=== PATIENT | male | born 1945 | race Hispanic/Latino ===

== ENCOUNTER 2020-01-15 21:42 | Emergency (ER) | payer MEDICARE ==
[2020-01-15 22:47] LABS: Basophils # (Auto) 0.1 K/mm3 (0.0-0.1); Basophils % (Auto) 1.2 % (0.0-1.8); Eosinophils # (Auto) 0.2 K/mm3 (0.0-0.4); Eosinophils % (Auto) 1.8 % (0.0-4.3); Hemoglobin 12.7 gm/dl (11.8-15.2); Lymphocytes # (Auto) 1.9 K/mm3 (1.2-5.4); Lymphocytes % (Auto) 17.2 % (13.4-35.0); Mean Corpuscular HGB Conc 33 % (32-34); Mean Corpuscular Volume 98 fl (84-94); Monocytes # (Auto) 1.5 K/mm3 (0.0-0.8); Monocytes % (Auto) 13.6 % (0.0-7.3); Platelet Count 241 K/mm3 (140-440); Red Blood Count 3.87 M/mm3 (3.65-5.03); Red Cell Distribution Width 13.2 % (13.2-15.2)
[2020-01-15 23:03] LABS: BUN/Creatinine Ratio 35; Blood Urea Nitrogen 21 mg/dL (9-20); Calcium 9.1 mg/dL (8.4-10.2); Hemolysis Index 1
--- NOTE | 2020-01-16 01:38 | Emergency Department Report ---
ED Altered Mental Status HPI - General Chief Complaint: Altered Mental Status Stated Complaint: LOWER BACK PAIN, CONFUSION Time Seen by Provider: 01/16/20 01:34 Source: police Mode of arrival: Wheelchair Limitations: Altered Mental Status - History of Present Illness Initial Comments: Patient is a 74-year-old male that presents emergency room with altered mental status. Patient is confused. Patient was found by EMS wandering around [facility]. Patient was confused with EMS. Patient complained of low back pain to EMS. Patient was recently discharged from [facility]. Patient at this time is alert and oriented x2. Patient denies pain. Patient denies chest pain. Patient states he does not know why he is here. Patient is currently oriented to person and place. Patient is disoriented to situation and time MD Complaint: altered mental status, confusion -: Sudden Associated Symptoms: denies other symptoms - Related Data Allergies Allergy/AdvReac Type Severity Reaction Status Date / Time Penicillins Allergy Anaphylaxis Verified 01/15/20 22:07 ED Review of Systems ROS: Stated complaint: LOWER BACK PAIN, CONFUSION Other details as noted in HPI Constitutional: denies: chills, fever Eyes: denies: eye pain, eye discharge, vision change ENT: denies: ear pain, throat pain Respiratory: denies: cough, shortness of breath, wheezing Cardiovascular: denies: chest pain, palpitations Endocrine: no symptoms reported Gastrointestinal: denies: abdominal pain, nausea, diarrhea Genitourinary: denies: urgency, dysuria Musculoskeletal: denies: back pain, joint swelling, arthralgia Skin: denies: rash, lesions Neurological: denies: headache, weakness, paresthesias Psychiatric: denies: anxiety, depression Hematological/Lymphatic: denies: easy bleeding, easy bruising ED Past Medical Hx - Past Medical History Previous Medical History?: Yes Hx GERD: Yes Hx Psychiatric Treatment: Yes (Major Depression) Additional medical history: PVD, Osteomyelitis , BPH - Surgical History Past Surgical History?: No - Family History Family history: no significant - Social History Smoking Status: Unknown if ever smoked Substance Use Type: None ED Physical Exam - General Limitations: Altered Mental Status General appearance: alert, in no apparent distress - Head Head exam: Present: atraumatic, normocephalic - Eye Eye exam: Present: normal appearance, PERRL Pupils: Present: normal accommodation - ENT ENT exam: Present: mucous membranes moist - Neck Neck exam: Present: normal inspection - Respiratory Respiratory exam: Present: normal lung sounds bilaterally. Absent: respiratory distress - Cardiovascular Cardiovascular Exam: Present: regular rate, normal rhythm. Absent: systolic murmur, diastolic murmur, rubs, gallop - GI/Abdominal GI/Abdominal exam: Present: soft, normal bowel sounds - Rectal Rectal exam: Present: deferred - Extremities Exam Extremities exam: Present: normal inspection - Back Exam Back exam: Present: normal inspection - Neurological Exam Neurological exam: Present: alert, oriented X3 - Psychiatric Psychiatric exam: Present: normal affect, normal mood - Skin Skin exam: Present: warm, dry, intact, normal color. Absent: rash - Assessment Assessment Interval: Baseline - Level of Consciousness 1a. Level of Consciousness: alert/keenly responsive - LOC Questions 1b. LOC Questions: answers 1 question correctly - LOC Command 1c. LOC Commands: performs tasks correctly - Best Gaze 2. Best Gaze: normal - Visual 3. Visual: no visual loss - Facial Palsy 4. Facial Palsy: normal symmetrical movement - Motor Arm 5a. Motor Arm Left: no drift 5b. Motor Arm Right: no drift - Motor Leg 6a. Motor Leg Left: no drift 6b. Motor Leg Right: no drift - Limb Ataxia 7. Limb Ataxia: absent - Sensory 8. Sensory: normal - Best Language 9. Best Language: no aphasia - Dysarthria 10. Dysarthria: normal - Extinction and Inattention 11. Extinction/Inattention: no abnormality - Scoring Total Score: 1 Stroke Severity: Minor Stroke ED Course Vital Signs 01/15/20 01/16/20 01/16/20 22:09 00:58 01:00 Temperature 98.0 F Pulse Rate 84 83 Respiratory 20 12 8 L Rate Blood Pressure 125/78 143/78 Blood Pressure [Left] O2 Sat by Pulse 94 93 96 Oximetry 01/16/20 01/16/20 01/16/20 01:02 01:16 01:30 Temperature Pulse Rate 79 77 72 Respiratory 15 10 L 9 L Rate Blood Pressure 143/78 143/78 Blood Pressure 143/78 [Left] O2 Sat by Pulse 96 96 97 Oximetry 01/16/20 01/16/20 01/16/20 01:46 02:00 02:16 Temperature Pulse Rate 71 70 76 Respiratory 9 L 12 10 L Rate Blood Pressure 143/78 143/78 143/78 Blood Pressure [Left] O2 Sat by Pulse 95 96 95 Oximetry 01/16/20 01/16/20 01/16/20 02:30 02:46 03:00 Temperature Pulse Rate 71 69 72 Respiratory 11 L 11 L 9 L Rate Blood Pressure 138/83 141/77 141/77 Blood Pressure [Left] O2 Sat by Pulse 98 96 97 Oximetry 01/16/20 01/16/20 01/16/20 03:16 03:30 03:45 Temperature Pulse Rate 68 74 76 Respiratory 7 L 12 11 L Rate Blood Pressure 131/75 127/82 131/75 Blood Pressure [Left] O2 Sat by Pulse 95 93 97 Oximetry 01/16/20 01/16/20 01/16/20 04:00 04:15 04:35 Temperature Pulse Rate 70 Respiratory 11 L Rate Blood Pressure 143/78 127/82 127/82 Blood Pressure [Left] O2 Sat by Pulse 94 93 97 Oximetry - Reevaluation(s) Reevaluation #1: Patient placed on an ER hold and a mental health evaluation will be done so the patient and possibly admitted to the geriatric psych floor. I discussed all results and clinical findings with patient. I discussed plan of care with patient. Patient agrees with plan of care. Patient is medically cleared. Patient's final disposition will come from our mental health and psychiatry team. 01/16/20 06:14 \ - Lab Data Result diagrams: 01/15/20 22:29 01/15/20 22:29 Lab Results 01/15/20 01/15/20 01/16/20 Range/Units 22:29 22:29 05:44 WBC 11.3 H (4.5-11.0) K/mm3 RBC 3.87 (3.65-5.03) M/mm3 Hgb 12.7 (11.8-15.2) gm/dl Hct 38.0 (35.5-45.6) % MCV 98 H (84-94) fl MCH 33 H (28-32) pg MCHC 33 (32-34) % RDW 13.2 (13.2-15.2) % Plt Count 241 (140-440) K/mm3 Lymph % (Auto) 17.2 (13.4-35.0) % Montgomery % (Auto) 13.6 H (0.0-7.3) % Eos % (Auto) 1.8 (0.0-4.3) % Baso % (Auto) 1.2 (0.0-1.8) % Lymph # 1.9 (1.2-5.4) K/mm3 Montgomery # 1.5 H (0.0-0.8) K/mm3 Eos # 0.2 (0.0-0.4) K/mm3 Baso # 0.1 (0.0-0.1) K/mm3 Seg Neutrophils % 66.2 (40.0-70.0) % Seg Neutrophils # 7.5 (1.8-7.7) K/mm3 Sodium 134 L (137-145) mmol/L Potassium 4.2 (3.6-5.0) mmol/L Chloride 97.6 L (98-107) mmol/L Carbon Dioxide 26 (22-30) mmol/L Anion Gap 15 mmol/L BUN 21 H (9-20) mg/dL Creatinine 0.6 L (0.8-1.5) mg/dL Estimated GFR > 60 ml/min BUN/Creatinine Ratio 35 % Glucose 148 H (75-100) mg/dL Calcium 9.1 (8.4-10.2) mg/dL Urine Color Yellow (Yellow) Urine Turbidity Clear (Clear) Urine pH 6.0 (5.0-7.0) Ur Specific Coyote 1.012 (1.003-1.030) Urine Protein <15 mg/dl (Negative) mg/dL Urine Glucose (UA) Neg (Negative) mg/dL Urine Ketones Neg (Negative) mg/dL Urine Blood Mod (Negative) Urine Nitrite Neg (Negative) Urine Bilirubin Neg (Negative) Urine Urobilinogen < 2.0 (<2.0) mg/dL Ur Leukocyte Esterase Neg (Negative) Urine WBC (Auto) 2.0 (0.0-6.0) /HPF Urine RBC (Auto) 4.0 (0.0-6.0) /HPF Urine Mucus Few /HPF Urine Opiates Screen Urine Methadone Screen Ur Barbiturates Screen Ur Phencyclidine Scrn Ur Amphetamines Screen U Benzodiazepines Scrn Urine Cocaine Screen U Marijuana (THC) Screen 01/16/20 Range/Units 05:44 WBC (4.5-11.0) K/mm3 RBC (3.65-5.03) M/mm3 Hgb (11.8-15.2) gm/dl Hct (35.5-45.6) % MCV (84-94) fl MCH (28-32) pg MCHC (32-34) % RDW (13.2-15.2) % Plt Count (140-440) K/mm3 Lymph % (Auto) (13.4-35.0) % Montgomery % (Auto) (0.0-7.3) % Eos % (Auto) (0.0-4.3) % Baso % (Auto) (0.0-1.8) % Lymph # (1.2-5.4) K/mm3 Montgomery # (0.0-0.8) K/mm3 Eos # (0.0-0.4) K/mm3 Baso # (0.0-0.1) K/mm3 Seg Neutrophils % (40.0-70.0) % Seg Neutrophils # (1.8-7.7) K/mm3 Sodium (137-145) mmol/L Potassium (3.6-5.0) mmol/L Chloride (98-107) mmol/L Carbon Dioxide (22-30) mmol/L Anion Gap mmol/L BUN (9-20) mg/dL Creatinine (0.8-1.5) mg/dL Estimated GFR ml/min BUN/Creatinine Ratio % Glucose (75-100) mg/dL Calcium (8.4-10.2) mg/dL Urine Color (Yellow) Urine Turbidity (Clear) Urine pH (5.0-7.0) Ur Specific Coyote (1.003-1.030) Urine Protein (Negative) mg/dL Urine Glucose (UA) (Negative) mg/dL Urine Ketones (Negative) mg/dL Urine Blood (Negative) Urine Nitrite (Negative) Urine Bilirubin (Negative) Urine Urobilinogen (<2.0) mg/dL Ur Leukocyte Esterase (Negative) Urine WBC (Auto) (0.0-6.0) /HPF Urine RBC (Auto) (0.0-6.0) /HPF Urine Mucus /HPF Urine Opiates Screen Presumptive negative Urine Methadone Screen Presumptive negative Ur Barbiturates Screen Presumptive negative Ur Phencyclidine Scrn Presumptive negative Ur Amphetamines Screen Presumptive negative U Benzodiazepines Scrn Presumptive negative Urine Cocaine Screen Presumptive negative U Marijuana (THC) Screen Presumptive negative - EKG Data -: EKG Interpreted by Nm EKG shows normal: sinus rhythm, intervals, QRS complexes, ST-T waves Rate: normal - Radiology Data Radiology results: report reviewed CT head/brain wo con INDICATION / CLINICAL INFORMATION: Confusion, Altered Mental Status. TECHNIQUE: Axial CT imaging of the brain was obtained without contrast. Coronal and sagittal reformatted imaging obtained and reviewed. All CT scans at this location are performed using CT dose reduction for ALARA by means of automated exposure control. COMPARISON: None available. FINDINGS: No intracranial hemorrhage, mass, or midline shift. No extra-axial fluid collection. There is area of encephalomalacia within the right inferior posterior parietal lobe consistent with old CVA. There is slight dilatation of the adjacent occipital horn of the lateral ventricle. There are multiple small lacunar infarctions throughout the basal ganglia bilaterally. Prominent bilateral cerebral white matter disease is present consistent with microvascular angiopathy. Moderate deep and cortical cerebral atrophy is noted. Ventricular system and basilar cisterns are otherwise unremarkable. Visualized paranasal sinuses and mastoid air cells are well aerated and clear. No calvarial abnormality noted. IMPRESSION: 1. No definite acute intracranial abnormality. 2. 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 3. 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 It would be difficult to exclude acute small CVA due to the extensive microvascular angiopathy. If clinically indicated, MRI could be performed. - Medical Decision Making Patient is a 74-year-old man who presents to the emergency room for altered mental status. Patient was found wandering around [facility]. Patient was brought in by EMS. Patient has confusion. Patient had a medical evaluation. Patient is medically cleared. Patient had labs which were unremarkable. Patient's urine was negative for UTI. Patient's head CT is negative for acute findings. Patient does not have a medical condition requiring admission. A mental health evaluation was placed in the computer so the patient can be evaluated for admission into our geriatric psych floor. Patient also had an ER hold place. Patient's final disposition will come from our mental health and psychiatry team. - Differential Diagnosis Altered mental status, dementia, psychosis, Zenia psych Critical care attestation.: If time is entered above; I have spent that time in minutes in the direct care of this critically ill patient, excluding procedure time. ED Disposition Clinical Impression: Confusion Altered mental state Qualifiers: Altered mental status type: unspecified Qualified Code(s): R41.82 - Altered mental status, unspecified Disposition: [id number]/[id number] PSY HOSP/PSY UNIT Is pt being admited?: No Does the pt Need Aspirin: No Condition: Stable Referrals: PRIMARY CARE, [Primary Care Provider] - 3-5 Days Time of Disposition: 06:17
--- NOTE | 2020-01-16 05:03 | Cat Scan Report ---
CT head/brain wo con INDICATION / CLINICAL INFORMATION: Confusion, Altered Mental Status. TECHNIQUE: Axial CT imaging of the brain was obtained without contrast. Coronal and sagittal reformatted imaging obtained and reviewed. All CT scans at this location are performed using CT dose reduction for ALAR A by means of automated exposure control. COMPARISON: None available. FINDINGS: No intracranial hemorrhage, mass, or midline shift. No extra-axial fluid collection. There is area of encephalomalacia within the right inferior posterior parietal lobe consistent with o ld CVA. There is slight dilatation of the adjacent occipital horn of the lateral ventricle. There are multiple small lacunar infarctions throughout the basal ganglia bilaterally. Prominent bilateral cer ebral white matter disease is present consistent with microvascular angiopathy. Moderate deep and cor tical cerebral atrophy is noted. Ventricular system and basilar cisterns are otherwise unremarkable. Visualized paranasal sinuses and mastoid air cells are well aerated and clear. No calvarial abnormali ty noted. IMPRESSION: 1. No definite acute intracranial abnormality. 2. 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 3. 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 It would be diffic ult to exclude acute small CVA due to the extensive microvascular angiopathy. If clinically indicated , MRI could be performed. Signer Name: Elizabeth Sharif MD Signed: 01/16/2020 4:58 AM Workstation Name: [id number]
[2020-01-16 06:00] LABS: Bilirubin,Urine NEG (Negative); Blood,Urine MOD (Negative); Color,Urine Yellow (Yellow); Mucus,Urine FEW /HPF; Protein,Urine <15 mg/dL mg/dL (Negative); Urobilinogen,Urine < 2.0 mg/dL (<2.0)
[2020-01-16 06:07] LABS: Amphetamine Screen,Urine PRESUMPTIVE NEGATIVE; Benzodiazepines Screen,Urine PRESUMPTIVE NEGATIVE; Cannabinoid Screen,Urine PRESUMPTIVE NEGATIVE; Cocaine Screen,Urine PRESUMPTIVE NEGATIVE; Methadone Screen,Urine PRESUMPTIVE NEGATIVE; Opiate Screen,Urine PRESUMPTIVE NEGATIVE
[2020-01-16 15:21] VITALS: BP 139/83
== END 2020-01-16 18:59 ==
LOC: ED 21:42
DX: R41.82 Altered mental status, unspecified (principal); M54.5 Low back pain; R41.0 Disorientation, unspecified; K21.9 Gastro-esophageal reflux disease without esophagitis; F32.89 Other specified depressive episodes; Z88.0 Allergy status to penicillin
CPT/HCPCS: 36415; 70450; 80048; 80307; 81001; 82962; 85025; 93005

== ENCOUNTER 2020-02-08 17:33 | Emergency (ER) | payer MEDICARE ==
[2020-02-08 18:13] LABS: Basophils # (Auto) 0.2 K/mm3 (0.0-0.1); Basophils % (Auto) 1.2 % (0.0-1.8); Eosinophils # (Auto) 0.2 K/mm3 (0.0-0.4); Eosinophils % (Auto) 1.5 % (0.0-4.3); Hematocrit 42.1 % (35.5-45.6); Hemoglobin 13.9 gm/dl (11.8-15.2); Lymphocytes # (Auto) 2.4 K/mm3 (1.2-5.4); Lymphocytes % (Auto) 18.8 % (13.4-35.0); Mean Corpuscular HGB Conc 33 % (32-34); Mean Corpuscular Volume 96 fl (84-94); Monocytes # (Auto) 1.4 K/mm3 (0.0-0.8); Monocytes % (Auto) 10.9 % (0.0-7.3); Platelet Count 234 K/mm3 (140-440); Red Blood Count 4.38 M/mm3 (3.65-5.03); Red Cell Distribution Width 13.5 % (13.2-15.2)
[2020-02-08 18:32] LABS: BUN/Creatinine Ratio 17; Blood Urea Nitrogen 10 mg/dL (9-20); Calcium 8.9 mg/dL (8.4-10.2); Hemolysis Index 6
[2020-02-08] MEDS ORDERED: POTASSIUM CHLORIDE ER 20 MEQ TAB PO ONE (21:36)
--- NOTE | 2020-02-08 21:40 | Emergency Department Report ---
ED Psych HPI - General Chief Complaint: Psych Stated Complaint: MH Time Seen by Provider: 02/08/20 21:29 Source: patient Mode of arrival: Wheelchair - History of Present Illness Initial Comments: Patient is 74 years old male with history of hypertension and depression. Patient presented to the ER stating that he is feeling very depressed and he is thinking about killing himself. Patient stated that he is living situation is very bad. He stated that he has nothing to live for now. He stated that his plan is to pickle pumper a fight with someone with a gun like a liaison officer so he can get shot. Patient denied any homicidal ideation. Patient also denied any visual or auditory hallucination. MD Complaint: suicidal ideation, feels depressed - Related Data Home Medications Medication Instructions Recorded Confirmed Last Taken No Known Home Medications [No 02/08/20 02/08/20 Unknown Reported Home Medications] Allergies Allergy/AdvReac Type Severity Reaction Status Date / Time Penicillins Allergy Anaphylaxis Verified 02/08/20 17:39 ED Review of Systems ROS: Stated complaint: MH Other details as noted in HPI Comment: All other systems reviewed and negative Constitutional: denies: chills, fever Respiratory: denies: cough, shortness of breath, SOB with exertion, wheezing Cardiovascular: denies: chest pain, palpitations Gastrointestinal: denies: abdominal pain, nausea, vomiting Musculoskeletal: denies: back pain Neurological: denies: headache, weakness, numbness, paresthesias, confusion, abnormal gait Psychiatric: depression, suicidal thoughts. denies: auditory hallucinations, visual hallucinations, homicidal thoughts ED Past Medical Hx - Past Medical History Hx GERD: Yes Hx Psychiatric Treatment: Yes (Major Depression) Additional medical history: PVD, Osteomyelitis , BPH - Surgical History Additional Surgical History: Lumbar fusion, left foot half amputation, spinal tumor removal - Social History Smoking Status: Never Smoker Substance Use Type: None - Medications Home Medications: Home Medications Medication Instructions Recorded Confirmed Last Taken Type No Known Home Medications [No 02/08/20 02/08/20 Unknown History Reported Home Medications] ED Physical Exam - General Limitations: No Limitations, Physical Limitation General appearance: alert, in no apparent distress - Head Head exam: Present: atraumatic, normocephalic, normal inspection - Eye Eye exam: Present: normal appearance - ENT ENT exam: Present: normal exam, normal orophraynx, mucous membranes moist - Neck Neck exam: Present: normal inspection - Respiratory Respiratory exam: Present: normal lung sounds bilaterally - Cardiovascular Cardiovascular Exam: Present: regular rate, normal rhythm, normal heart sounds - GI/Abdominal GI/Abdominal exam: Present: soft, normal bowel sounds. Absent: distended, tenderness, guarding, rebound, rigid, organomegaly, mass, bruit, pulsatile mass, hernia - Extremities Exam Extremities exam: Present: normal inspection, full ROM, normal capillary refill. Absent: tenderness, pedal edema, calf tenderness - Back Exam Back exam: Present: normal inspection, full ROM. Absent: CVA tenderness (R), CVA tenderness (L) - Neurological Exam Neurological exam: Present: alert, oriented X3, CN II-XII intact. Absent: motor sensory deficit - Psychiatric Psychiatric exam: Present: depressed, suicidal ideation. Absent: agitated, anxious, flat affect, manic, homicidal ideation - Skin Skin exam: Present: warm, intact, normal color ED Course Vital Signs 02/08/20 02/09/20 02/09/20 17:42 00:32 01:58 Temperature 98.0 F 97.9 F Pulse Rate 76 65 Respiratory 18 18 18 Rate Blood Pressure 145/72 Blood Pressure 101/56 [Left] O2 Sat by Pulse 98 96 Oximetry 02/09/20 02/09/20 08:00 17:03 Temperature 98.4 F 98.6 F Pulse Rate 74 67 Respiratory 19 18 Rate Blood Pressure Blood Pressure 155/94 144/50 [Left] O2 Sat by Pulse 96 96 Oximetry ED Medical Decision Making - Lab Data Result diagrams: 02/08/20 17:47 02/09/20 12:20 Critical care attestation.: If time is entered above; I have spent that time in minutes in the direct care of this critically ill patient, excluding procedure time. ED Disposition Clinical Impression: Suicidal ideation Disposition: DC/[id number] PSY HOSP/PSY UNIT Is pt being admited?: No Condition: Stable Instructions: Suicide Prevention for Adults (ED)
[2020-02-09 04:40] LABS: Bilirubin,Urine NEG (Negative); Blood,Urine SM (Negative); Color,Urine Yellow (Yellow); Protein,Urine <15 mg/dL mg/dL (Negative)
[2020-02-09 04:41] LABS: Amphetamine Screen,Urine PRESUMPTIVE NEGATIVE; Benzodiazepines Screen,Urine PRESUMPTIVE NEGATIVE; Cannabinoid Screen,Urine PRESUMPTIVE NEGATIVE; Cocaine Screen,Urine PRESUMPTIVE NEGATIVE; Methadone Screen,Urine PRESUMPTIVE NEGATIVE; Opiate Screen,Urine PRESUMPTIVE NEGATIVE
[2020-02-09] MEDS ORDERED: ACETAMINOPHEN 325 MG TAB ONE (15:27)
[2020-02-09] MEDS ORDERED: ACETAMINOPHEN 325 MG TAB PO ONE (15:28)
[2020-02-09 17:05] VITALS: BP 144/50
== END 2020-02-09 18:54 ==
LOC: ED 17:33
DX: R45.851 Suicidal ideations (principal); F32.9 Major depressive disorder, single episode, unspecified; I10 Essential (primary) hypertension; K21.9 Gastro-esophageal reflux disease without esophagitis; Z79.899 Other long term (current) drug therapy; Z98.890 Other specified postprocedural states; Z88.0 Allergy status to penicillin
CPT/HCPCS: 36415; 80048; 80307; 80320; 81001; 84132; 85025; G0480

== ENCOUNTER 2020-02-09 11:12 | Inpatient (IN) | payer MEDICARE ==
[2020-02-09] MEDS ORDERED: ZOLPIDEM 5 MG TAB PO PRN (22:35)
[2020-02-09] MEDS: traZODone 50 MG TAB PO SCH (23:21)
[2020-02-09] MEDS: QUEtiapine 100 MG TAB PO SCH (23:22)
[2020-02-09] MEDS: ACETAMINOPHEN 325 MG TAB PO PRN (23:23)
[2020-02-10] MEDS: QUEtiapine 100 MG TAB PO SCH ×3 (03:00→21:11)
[2020-02-10] MEDS: traZODone 50 MG TAB PO SCH ×2 (03:01→21:11)
--- NOTE | 2020-02-10 06:52 | History and Physical Report ---
GP History & Physical - History of Present Illness Date of admission: 02/09/20 Date of Examination: 02/10/20 Reason for Admission: Danger to self Chief Complaint: Suicidal Ideation History of Present Illness: Per ED Provider: Patient is 74 years old male with history of hypertension and depression. Patient presented to the ER stating that he is feeling very depressed and he is thinking about killing himself. Patient stated that he is living situation is very bad. He stated that he has nothing to live for now. 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 Patient denied any homicidal ideation. Patient also denied any visual or auditory hallucination. HPI Patient is a disabled 74-year-old male with past psychiatric history of depression and past medical history of hypertension, chronic low back pain and BPH who presented to the ER for evaluation of suicidal ideation. Patient stated coming to the ER because he thinks was about to commit suicide and his suicidal thoughts have been precipitated mostly due to his living situation and because he is not satisfied with life. Patient reported being bullied both physically and verbally by 1 of his other 2 roommates, states this particular roommate may decrease him a lot and states a lot of negative things about him and always criticizing everything he does at home. Patient reported he has been very depressed because of this, has been having poor sleep patterns suicidal ideation but denies any auditory visual hallucination or any homicidal thoughts. Patient endorses to prescription drug abuse and addiction thoughts post back surgery denies any other illicit drug use. Patient reported he is alone and has no family support whatsoever, Patient had initially told nurse he his on suboxone therapy and his last one was 10 days ago, review of medical records showed last suboxone rx was back in September. PAST PSYCHIATRIC HISTORY: Diagnoses: Depression Suicide attempts or Self-harm behavior: None reported Prior psychiatric hospitalizations: None reported Substance Abuse history: Yes, rx medications Previous psychiatric medications tried: None reported Outpatient treatment: None reported PAST MEDICAL HISTORY: Chronic Back pain and BPH Family Psychiatric History: None reported or documented SOCIAL HISTORY Marital Status: Living Arrangements: WIth roommates Employment Status: Disabled Access to guns/weapons: None reported Education: 12th grade History of Abuse: None reported Legal History: None reported REVIEW OF SYSTEMS Constitutional: Negative for weight loss ENT: Negative for stridor Respiratory: Negative for cough or hemoptysis All other systems reviewed and are negative MENTAL STATUS EXAMINATION General Appearance and Behavior: Age appropriate, fair hygiene, wearing appropriate clothes, good/poor eye contact, cooperative with questioning and polite Cooperation: Participating/engaged Psychomotor Behavior: unremarkable and within normal limits Mood: Depressed Affect and affective range: congruent with mood Thought Process: Fluent/Logical Thought Content: Within reality Speech: Normal volume, Regular rate and rhythm Intellectual Functioning: Average Suicidal Ideation: Endorses Homicidal Ideation: Denies HI Impulse Control: Unimpaired Insight and Judgment: Normal insight and judgment Memory: Normal Attention: Normal Orientation: Alert, oriented Assessment and Plan - Psychiatric problem (1) MDD (major depressive disorder), recurrent severe, without psychosis Current Visit: Yes Status: Acute (2) Substance use disorder Current Visit: Yes Status: Acute Treatment Plan: Patient started on Seroquel, Venlafaxine and nicotine pacth PRN. Home meds restarted. Patient will be admitted for inpatient psychiatric evaluation, medication adjustment and close monitoring The patient's behavior, mood, sleep and appetite will be closely monitored. Patient will be enrolled in individual and group therapeutic sessions and encouraged to attend. Patient will be provided with a safe and structured environment. Patient's physical health needs will be addressed by the Hospitalist. [facility] Consult[facility] Labs including CBC, CMP, Lipid profile and Hemoglobin A1C ordered Social Assessment will be completed and the Converter Operator will work with patient and family to ensure a suitable and safe disposition Medication adjustment will be made as clinically indicated Usual Wellness Yazdanism/Preservation: - Start Trazodone 50 mg po QHS & 50 mg po QHS PRN between 10 PM & 2 AM for insomnia - Start Melatonin 5 mg po QHS to promote circadian rhythm - Start Wallis-3 for brain health, reduce impulsivity, and as adjunctive treatment for mood disorder, continue upon discharge given overall benefits. - Start B1 prophylaxis with 200 mg po for 5 days The patient agreed on the treatment plan, understood the risk, benefit, alternative treatment, potential consequence of no treatment, and gave informed consent. This is an acknowledgement statement that EMMY ROBERTS is a 74 year old M who requires inpatient psychiatric admission for treatment which could reasonably be expected to improve the patient's condition for Estimated period of time patient will need to remain in the hospital: [ 7] Plan for post-hospital care: [ outpatient] Legal Status: Voluntary Patient Problems: Current Active Problems MDD (major depressive disorder), recurrent severe, without psychosis (Acute) Substance use disorder (Acute) Reaction to Hospitalization: Accepting Medications and Allergies Allergies Allergy/AdvReac Type Severity Reaction Status Date / Time Penicillins Allergy Anaphylaxis Verified 02/08/20 17:39 Home Medications Medication Instructions Recorded Confirmed Last Taken Type No Known Home Medications [No 02/08/20 02/09/20 Unknown History Reported Home Medications] Active Meds: Active Medications Acetaminophen (Tylenol) 975 mg PO Q6H PRN PRN Reason: Pain, Mild (1-3) Finasteride (Proscar) 5 mg PO QDAY [facility] Quetiapine Fumarate (Seroquel) 50 mg PO BID [facility] Last Admin: 02/10/20 03:00 Dose: Not Given Documented by: Tamsulosin HCl (Flomax) 0.4 mg PO QDAY [facility] Trazodone HCl (Desyrel) 50 mg PO QHS [facility] Last Admin: 02/10/20 03:01 Dose: Not Given Documented by: Venlafaxine HCl (Effexor Xr) 75 mg PO QDAY [facility] Zolpidem Tartrate (Ambien) 5 mg PO QHS PRN PRN Reason: Sleep Results - Results Labs/Vitals: Last Vital Signs Temp 99.2 F 02/09/20 22:00 Pulse 88 02/09/20 22:00 Resp 18 02/09/20 22:00 BP 133/41 02/09/20 22:00 Pulse Ox 97 02/09/20 22:00 Physical Examination - Constitutional Vitals: Vital Signs Temp Pulse Resp BP Pulse Ox 99.2 F 88 18 133/41 97 02/09/20 22:00 02/09/20 22:00 02/09/20 22:00 02/09/20 22:00 02/09/20 22:00 Temperature -Last 24 Hours Temperature 99.2 F Mental Status Exam - Vital signs Last Vital Signs Temp 99.2 F 02/09/20 22:00 Pulse 88 02/09/20 22:00 Resp 18 02/09/20 22:00 BP 133/41 02/09/20 22:00 Pulse Ox 97 02/09/20 22:00 Assessment and Plan - Psychiatric problem (1) MDD (major depressive disorder), recurrent severe, without psychosis Current Visit: Yes Status: Acute (2) Substance use disorder Current Visit: Yes Status: Acute Physician Certification - Certification Statement Physician Certification Statement: This is an acknowledgement statement that EMMY ROBERTS is a 74 year old M who requires inpatient psychiatric admission for treatment which could reasonably be expected to improve the patient's condition for Estimated period of time patient will need to remain in the hospital: [ ] Plan for post-hospital care: [ ]
[2020-02-10 07:57] LABS: Basophils # (Auto) 0.2 K/mm3 (0.0-0.1); Basophils % (Auto) 1.3 % (0.0-1.8); Eosinophils # (Auto) 0.2 K/mm3 (0.0-0.4); Eosinophils % (Auto) 2.1 % (0.0-4.3); Hematocrit 42.4 % (35.5-45.6); Hemoglobin 14.1 gm/dl (11.8-15.2); Lymphocytes # (Auto) 2.2 K/mm3 (1.2-5.4); Lymphocytes % (Auto) 18.1 % (13.4-35.0); Mean Corpuscular HGB Conc 33 % (32-34); Mean Corpuscular Volume 98 fl (84-94); Monocytes # (Auto) 1.5 K/mm3 (0.0-0.8); Monocytes % (Auto) 12.6 % (0.0-7.3); Platelet Count 240 K/mm3 (140-440); Red Blood Count 4.33 M/mm3 (3.65-5.03); Red Cell Distribution Width 13.8 % (13.2-15.2)
[2020-02-10 08:12] LABS: Alanine Aminotransferase 91 units/L (7-56); Albumin 3.9 g/dL (3.9-5); BUN/Creatinine Ratio 16; Blood Urea Nitrogen 11 mg/dL (9-20); Calcium 9.1 mg/dL (8.4-10.2); Chol/HDL Ratio 2.86 %; HDL Cholesterol 50 mg/dL (40-59); Hemolysis Index 17; LDL Cholesterol,Direct 95 mg/dL (50-130)
[2020-02-10] MEDS ORDERED: TAMSULOSIN 0.4 MG CAP PO SCH (10:00)
[2020-02-10] MEDS ORDERED: QUEtiapine 100 MG TAB PO SCH (10:00)
[2020-02-10] MEDS: FINASTERIDE 5 MG TAB PO SCH (12:13)
[2020-02-10] MEDS: VENLAFAXINE XR 75 MG CAP PO SCH (12:14)
[2020-02-10] MEDS: NICOTINE 7 MG/24 HR PATCH TD SCH (17:09)
--- NOTE | 2020-02-10 17:51 | Consultation ---
History of Present Illness - Reason for Consult Consult date: 02/10/20 HTN Requesting physician: STEPHEN BEAN - History of Present Illness 74 YO Male with HTN, Depression, GERD, PVD, BPH, chronic back pain admitted to [facility] for psychiatric stabilization. Patient seen and evaluated in his room. Patient relates reclining in bed. Patient denies any a.m. complaints. Patient reports that he does not take medication for high blood pressure as an outpatient. Patient denies fever, chills, chest pain, palpitation, shortness of breath, productive cough, recent ill contacts, or known exposure to COVID-19. Patient knowledges feeling depressed. No reported nursing events. Past History Past Medical History: other (See HPI) Past Surgical History: Other (Back surgery) Social history: single Family history: hypertension Medications and Allergies Allergies Allergy/AdvReac Type Severity Reaction Status Date / Time Penicillins Allergy Anaphylaxis Verified 02/08/20 17:39 Home Medications Medication Instructions Recorded Confirmed Last Taken Type No Known Home Medications [No 02/08/20 02/09/20 Unknown History Reported Home Medications] Active Meds: Active Medications Acetaminophen (Tylenol) 975 mg PO Q6H PRN PRN Reason: Pain, Mild (1-3) Finasteride (Proscar) 5 mg PO QDAY [facility] Last Admin: 02/10/20 12:13 Dose: 5 mg Documented by: Nicotine (Habitrol) 7 mg TD QDAY [facility] Last Admin: 02/10/20 17:09 Dose: 7 mg Documented by: Quetiapine Fumarate (Seroquel) 50 mg PO BID [facility] Last Admin: 02/10/20 12:13 Dose: 50 mg Documented by: Tamsulosin HCl (Flomax) 0.4 mg PO QDAY [facility] Last Admin: 02/10/20 12:14 Dose: 0.4 mg Documented by: Trazodone HCl (Desyrel) 50 mg PO QHS [facility] Last Admin: 02/10/20 03:01 Dose: Not Given Documented by: Venlafaxine HCl (Effexor Xr) 75 mg PO QDAY [facility] Last Admin: 02/10/20 12:14 Dose: 75 mg Documented by: Zolpidem Tartrate (Ambien) 5 mg PO QHS PRN PRN Reason: Sleep Review of Systems Constitutional: no weight loss, no weight gain, no fever, no chills Ears, nose, mouth and throat: no ear pain, no ear discharge, no tinnitis, no decreased hearing Cardiovascular: no chest pain, no orthopnea, no palpitations, no rapid/irregular heart beat Respiratory: no cough, no cough with sputum, no excessive sputum, no hemoptysis Gastrointestinal: no nausea, no vomiting, no diarrhea, no constipation Genitourinary Male: no hematuria, no flank pain, no discharge, no urinary hesitancy Rectal: no pain, no incontinence, no bleeding Musculoskeletal: no neck stiffness, no neck pain, no shooting arm pain, no arm numbness/tingling, no low back pain Integumentary: no rash, no pruritis, no redness, no sores, no wounds Neurological: no paralysis, no weakness, no parathesias, no numbness, no tingling Psychiatric: no anxiety, no memory loss, no change in sleep habits, no sleep disturbances, no insomnia, no hypersomnia, no change in appetite Endocrine: no cold intolerance, no heat intolerance, no polyphagia, no excessive thirst, no polyuria, no nocturia Hematologic/Lymphatic: no easy bruising, no easy bleeding, no lymphadenopathy, no lymphedema Allergic/Immunologic: no urticaria, no allergic rhinitis, no wheezing, no persistent infections, no anaphylaxis Exam - Constitutional Vitals: Temp Pulse Resp BP Pulse Ox 99.2 F 88 18 133/41 97 02/09/20 22:00 02/09/20 22:00 02/09/20 22:00 02/09/20 22:00 02/09/20 22:00 General appearance: Present: no acute distress, well-nourished - EENT Eyes: Present: PERRL ENT: hearing intact, clear oral mucosa - Neck Neck: Present: supple, normal ROM - Respiratory Respiratory effort: normal Respiratory: bilateral: CTA - Cardiovascular Heart Sounds: Present: S1 & S2. Absent: rub, click - Extremities Extremities: pulses symmetrical, No edema Peripheral Pulses: within normal limits - Abdominal General gastrointestinal: Present: soft, non-tender, non-distended, normal bowel sounds Male genitourinary: Present: normal - Integumentary Integumentary: Present: clear, warm, dry - Musculoskeletal Musculoskeletal: gait normal, strength equal bilaterally - Psychiatric Psychiatric: appropriate mood/affect, intact judgment & insight - Neurologic Neurologic: CNII-XII intact, moves all extremities Results - Labs CBC & Chem 7: 02/10/20 07:05 02/10/20 07:05 Labs: Abnormal lab results 02/10/20 02/10/20 Range/Units 07:05 07:05 WBC 12.0 H (4.5-11.0) K/mm3 MCV 98 H (84-94) fl MCH 33 H (28-32) pg Daniels % (Auto) 12.6 H (0.0-7.3) % Daniels # 1.5 H (0.0-0.8) K/mm3 Baso # 0.2 H (0.0-0.1) K/mm3 Seg Neutrophils # 7.9 H (1.8-7.7) K/mm3 Creatinine 0.7 L (0.8-1.5) mg/dL Glucose 136 H (75-100) mg/dL AST 53 H (5-40) units/L ALT 91 H (7-56) units/L Assessment and Plan - Patient Problems (1) Hypertension Current Visit: No Status: Acute Qualifiers: Hypertension type: essential hypertension Qualified Code(s): I10 - Essential (primary) hypertension Plan to address problem: Blood pressure is within normal limits at time of my evaluation and during coarse of admission. Monitor BP q shift, IV hydralazine PRN for SBP greater than or equal to 160.
[2020-02-10] MEDS ORDERED: hydrALAZINE 20 MG/1 ML INJ IV PRN (18:42)
[2020-02-10] MEDS ORDERED: traZODone 50 MG TAB PO SCH (22:00)
--- NOTE | 2020-02-11 06:52 | Progress Note ---
Subjective Date of service: 02/11/20 Principal diagnosis: MDD (major depressive disorder), recurrent severe, without psychosis Subjective Comment: Nurse note: Received in the activity room sitting on w/c calmly. A&OX3. Denies pain. Said "no" to SI and HI. No behavioral issue or acute distress observed. Will continue to monitor. Psych Progress Patient seen in social room today on wheel chair, describes mood as depressed says mostly due to his medical conditions and requesting and triple his depression medication. Patient reports being suicidal and expresses concern about peeing on himself. Patient denies AVH and endorses good sleep and appetite. Reason for continuing inpatient psychiatric hospitalization: Persistent depressed mood accompanied by Suicidal ideation MENTAL STATUS EXAMINATION General Appearance and Behavior: Age appropriate, fair hygiene, wearing appropriate clothes, good/poor eye contact, cooperative with questioning and polite Cooperation: Participating/engaged Psychomotor Behavior: unremarkable and within normal limits Mood: Depressed Affect and affective range: congruent with mood Thought Process: Fluent/Logical Thought Content: Within reality Speech: Normal volume, Regular rate and rhythm Intellectual Functioning: Average Suicidal Ideation: Endorses Homicidal Ideation: Denies HI Impulse Control: Unimpaired Insight and Judgment: Normal insight and judgment Memory: Normal Attention: Normal Orientation: Alert, oriented Assessment and Plan - Psychiatric problem (1) MDD (major depressive disorder), recurrent severe, without psychosis Current Visit: Yes Status: Acute (2) Substance use disorder Current Visit: Yes Status: Acute Treatment Plan: Patient started on Seroquel, Venlafaxine and nicotine pacth PRN. Home meds restarted. Patient will be admitted for inpatient psychiatric evaluation, medication adjustment and close monitoring The patient's behavior, mood, sleep and appetite will be closely monitored. Patient will be enrolled in individual and group therapeutic sessions and encouraged to attend. Patient will be provided with a safe and structured environment. Patient's physical health needs will be addressed by the Hospitalist. Hospitalist Consulted Labs including CBC, CMP, Lipid profile and Hemoglobin A1C ordered Social Assessment will be completed and the Automotive Engineering Technician will work with patient and family to ensure a suitable and safe disposition Medication adjustment : will discontinue flomax and finesteride due to incontinence. Usual Wellness Adventist/Preservation: - Start Trazodone 50 mg po QHS & 50 mg po QHS PRN between 10 PM & 2 AM for insomnia - Start Melatonin 5 mg po QHS to promote circadian rhythm - Start Gaines-3 for brain health, reduce impulsivity, and as adjunctive t reatment for mood disorder, continue upon discharge given overall benefits. - Start B1 prophylaxis with 200 mg po for 5 days The patient agreed on the treatment plan, understood the risk, benefit, a lternative treatment, potential consequence of no treatment, and gave informed consent. This is an acknowledgement statement that EMMY ROBERTS is a 74 year old M who requires inpatient psychiatric admission for treatment which could reasonably be expected to improve the patient's condition for Estimated period of time patient will need to remain in the hospital: [ 6] Plan for post-hospital care: [ outpatient] Assessment and Plan - Patient Problems (1) MDD (major depressive disorder), recurrent severe, without psychosis Current Visit: Yes Status: Acute (2) Substance use disorder Current Visit: Yes Status: Acute Medications and Allergies Allergies Allergy/AdvReac Type Severity Reaction Status Date / Time Penicillins Allergy Anaphylaxis Verified 02/08/20 17:39 Home Medications Medication Instructions Recorded Confirmed Last Taken Type No Known Home Medications [No 02/08/20 02/09/20 Unknown History Reported Home Medications] Active Meds: Active Medications Acetaminophen (Tylenol) 975 mg PO Q6H PRN PRN Reason: Pain, Mild (1-3) Finasteride (Proscar) 5 mg PO QDAY [facility] Last Admin: 02/10/20 12:13 Dose: 5 mg Documented by: Hydralazine HCl (Apresoline) 10 mg IV Q6HR PRN PRN Reason: Hypertension Nicotine (Habitrol) 7 mg TD QDAY [facility] Last Admin: 02/10/20 17:09 Dose: 7 mg Documented by: Quetiapine Fumarate (Seroquel) 50 mg PO BID [facility] Last Admin: 02/10/20 21:11 Dose: 50 mg Documented by: Tamsulosin HCl (Flomax) 0.4 mg PO QDAY [facility] Last Admin: 02/10/20 12:14 Dose: 0.4 mg Documented by: Trazodone HCl (Desyrel) 50 mg PO QHS [facility] Last Admin: 02/10/20 21:11 Dose: 50 mg Documented by: Venlafaxine HCl (Effexor Xr) 75 mg PO QDAY [facility] Last Admin: 02/10/20 12:14 Dose: 75 mg Documented by: Zolpidem Tartrate (Ambien) 5 mg PO QHS PRN PRN Reason: Sleep Results - Results Labs/Vitals: Laboratory Last Values WBC 12.0 K/mm3 (4.5-11.0) H 02/10/20 07:05 RBC 4.33 M/mm3 (3.65-5.03) 02/10/20 07:05 Hgb 14.1 gm/dl (11.8-15.2) 02/10/20 07:05 Hct 42.4 % (35.5-45.6) 02/10/20 07:05 MCV 98 fl (84-94) H 02/10/20 07:05 MCH 33 pg (28-32) H 02/10/20 07:05 MCHC 33 % (32-34) 02/10/20 07:05 RDW 13.8 % (13.2-15.2) 02/10/20 07:05 Plt Count 240 K/mm3 (140-440) 02/10/20 07:05 Lymph % (Auto) 18.1 % (13.4-35.0) 02/10/20 07:05 Becker % (Auto) 12.6 % (0.0-7.3) H 02/10/20 07:05 Eos % (Auto) 2.1 % (0.0-4.3) 02/10/20 07:05 Baso % (Auto) 1.3 % (0.0-1.8) 02/10/20 07:05 Lymph # 2.2 K/mm3 (1.2-5.4) 02/10/20 07:05 Becker # 1.5 K/mm3 (0.0-0.8) H 02/10/20 07:05 Eos # 0.2 K/mm3 (0.0-0.4) 02/10/20 07:05 Baso # 0.2 K/mm3 (0.0-0.1) H 02/10/20 07:05 Seg Neutrophils % 65.9 % (40.0-70.0) 02/10/20 07:05 Seg Neutrophils # 7.9 K/mm3 (1.8-7.7) H 02/10/20 07:05 Sodium 143 mmol/L (137-145) D 02/10/20 07:05 Potassium 3.8 mmol/L (3.6-5.0) 02/10/20 07:05 Chloride 106.1 mmol/L (98-107) 02/10/20 07:05 Carbon Dioxide 27 mmol/L (22-30) 02/10/20 07:05 Anion Gap 14 mmol/L 02/10/20 07:05 BUN 11 mg/dL (9-20) 02/10/20 07:05 Creatinine 0.7 mg/dL (0.8-1.5) L 02/10/20 07:05 Estimated GFR > 60 ml/min 02/10/20 07:05 BUN/Creatinine Ratio 16 % 02/10/20 07:05 Glucose 136 mg/dL (75-100) H 02/10/20 07:05 Hemoglobin A1c 5.8 % (4-6) 02/10/20 07:05 Calcium 9.1 mg/dL (8.4-10.2) 02/10/20 07:05 Total Bilirubin 0.40 mg/dL (0.1-1.2) 02/10/20 07:05 AST 53 units/L (5-40) H 02/10/20 07:05 ALT 91 units/L (7-56) H 02/10/20 07:05 Alkaline Phosphatase 121 units/L (35-129) 02/10/20 07:05 Total Protein 6.9 g/dL (6.3-8.2) 02/10/20 07:05 Albumin 3.9 g/dL (3.9-5) 02/10/20 07:05 Albumin/Globulin Ratio 1.3 % 02/10/20 07:05 Triglycerides 82 mg/dL (2-149) 02/10/20 07:05 Cholesterol 143 mg/dL (50-199) 02/10/20 07:05 LDL Cholesterol Direct 95 mg/dL (50-130) 02/10/20 07:05 HDL Cholesterol 50 mg/dL (40-59) 02/10/20 07:05 Cholesterol/HDL Ratio 2.86 % 02/10/20 07:05 TSH 0.843 mlU/mL (0.270-4.200) 02/10/20 07:05 Thyroxine (T4) 10.8 ug/dL (4.0-12.0) 02/10/20 07:05 Last Vital Signs Temp 98.5 F 05/18/20 22:00 Pulse 87 02/10/20 22:00 Resp 20 02/10/20 22:00 BP 167/81 02/10/20 22:00 Pulse Ox 95 02/10/20 22:00
[2020-02-11] MEDS: QUEtiapine 100 MG TAB PO SCH ×2 (10:36→21:11)
[2020-02-11] MEDS: FINASTERIDE 5 MG TAB PO SCH (10:37)
[2020-02-11] MEDS: VENLAFAXINE XR 75 MG CAP PO SCH (10:38)
[2020-02-11] MEDS: NICOTINE 7 MG/24 HR PATCH TD SCH (10:38)
[2020-02-11] MEDS: traZODone 50 MG TAB PO SCH (21:11)
--- NOTE | 2020-02-12 06:57 | Progress Note ---
Subjective Date of service: 02/12/20 Principal diagnosis: MDD (major depressive disorder), recurrent severe, without psychosis Subjective Comment: Nurse note: Pt is observed in the activity room and interacts with staff on approach. He appears confused but is able to be redirected. Pt is pleasant and shows no s/s of distress. Will continue to monitor for safety. Psych Progress Pt seen in social room, interviewed by me this AM, says he is depressed, says he cant seem to slow down thoughts in his head and slow enough to even think. Pt reports sleep has been good with a normal apetite. He also reports he can now make it to bathroom to pee. Incontinence reduced after medication changes. Reason for continuing inpatient psychiatric hospitalization: Persistent depressed mood accompanied by Suicidal ideation MENTAL STATUS EXAMINATION General Appearance and Behavior: Age appropriate, fair hygiene, wearing appropriate clothes, good/poor eye contact, cooperative with questioning and polite Cooperation: Participating/engaged Psychomotor Behavior: unremarkable and within normal limits Mood: Depressed Affect and affective range: congruent with mood Thought Process: Fluent/Logical Thought Content: Within reality Speech: Normal volume, Regular rate and rhythm Intellectual Functioning: Average Suicidal Ideation: Endorses Homicidal Ideation: Denies HI Impulse Control: Unimpaired Insight and Judgment: Normal insight and judgment Memory: Normal Attention: Normal Orientation: Alert, oriented Assessment and Plan - Psychiatric problem (1) MDD (major depressive disorder), recurrent severe, without psychosis Current Visit: Yes Status: Acute (2) Substance use disorder Current Visit: Yes Status: Acute Treatment Plan: Patient started on Seroquel, Venlafaxine and nicotine pacth PRN. Home meds restarted. Patient will be admitted for inpatient psychiatric evaluation, medication adjustment and close monitoring The patient's behavior, mood, sleep and appetite will be closely monitored. Patient will be enrolled in individual and group therapeutic sessions and encouraged to attend. Patient will be provided with a safe and structured environment. Patient's physical health needs will be addressed by the Hospitalist. Hospitalist Consulted Labs including CBC, CMP, Lipid profile and Hemoglobin A1C ordered Social Assessment will be completed and the Shell Assembler will work with patien t and family to ensure a suitable and safe disposition Medication adjustment : Continue current medications Usual Wellness Lutheran/Preservation: - Start Trazodone 50 mg po QHS & 50 mg po QHS PRN between 10 PM & 2 AM for insomnia - Start Melatonin 5 mg po QHS to promote circadian rhythm - Start [place]-3 for brain health, reduce impulsivity, and as adjunctive treatme nt for mood disorder, continue upon discharge given overall benefits. - Start B1 prophylaxis with 200 mg po for 5 days The patient agreed on the treatment plan, understood the risk, benefit, alterna tive treatment, potential consequence of no treatment, and gave informed consent. This is an acknowledgement statement that EMMY ROBERTS is a 74 year old M who requires inpatient psychiatric admission for treatment which could reasonably be expected to improve the patient's condition for Estimated period of time patient will need to remain in the hospital: [ 5] Plan for post-hospital care: [ outpatient] Assessment and Plan - Patient Problems (1) MDD (major depressive disorder), recurrent severe, without psychosis Current Visit: Yes Status: Acute (2) Substance use disorder Current Visit: Yes Status: Acute Medications and Allergies Allergies Allergy/AdvReac Type Severity Reaction Status Date / Time Penicillins Allergy Anaphylaxis Verified 02/08/20 17:39 Home Medications Medication Instructions Recorded Confirmed Last Taken Type No Known Home Medications [No 02/08/20 02/09/20 Unknown History Reported Home Medications] Active Meds: Active Medications Acetaminophen (Tylenol) 975 mg PO Q6H PRN PRN Reason: Pain, Mild (1-3) Hydralazine HCl (Apresoline) 10 mg IV Q6HR PRN PRN Reason: Hypertension Nicotine (Habitrol) 7 mg TD QDAY [facility] Last Admin: 02/11/20 10:38 Dose: 7 mg Documented by: Quetiapine Fumarate (Seroquel) 50 mg PO BID [facility] Last Admin: 02/11/20 21:11 Dose: 50 mg Documented by: Trazodone HCl (Desyrel) 50 mg PO QHS [facility] Last Admin: 02/11/20 21:11 Dose: 50 mg Documented by: Venlafaxine HCl (Effexor Xr) 75 mg PO QDAY [facility] Last Admin: 02/11/20 10:38 Dose: 75 mg Documented by: Zolpidem Tartrate (Ambien) 5 mg PO QHS PRN PRN Reason: Sleep Results - Results Labs/Vitals: Laboratory Last Values WBC 12.0 K/mm3 (4.5-11.0) H 02/10/20 07:05 RBC 4.33 M/mm3 (3.65-5.03) 02/10/20 07:05 Hgb 14.1 gm/dl (11.8-15.2) 02/10/20 07:05 Hct 42.4 % (35.5-45.6) 02/10/20 07:05 MCV 98 fl (84-94) H 02/10/20 07:05 MCH 33 pg (28-32) H 02/10/20 07:05 MCHC 33 % (32-34) 02/10/20 07:05 RDW 13.8 % (13.2-15.2) 02/10/20 07:05 Plt Count 240 K/mm3 (140-440) 02/10/20 07:05 Lymph % (Auto) 18.1 % (13.4-35.0) 02/10/20 07:05 [place] % (Auto) 12.6 % (0.0-7.3) H 02/10/20 07:05 Eos % (Auto) 2.1 % (0.0-4.3) 02/10/20 07:05 Baso % (Auto) 1.3 % (0.0-1.8) 02/10/20 07:05 Lymph # 2.2 K/mm3 (1.2-5.4) 02/10/20 07:05 [place] # 1.5 K/mm3 (0.0-0.8) H 02/10/20 07:05 Eos # 0.2 K/mm3 (0.0-0.4) 02/10/20 07:05 Baso # 0.2 K/mm3 (0.0-0.1) H 02/10/20 07:05 Seg Neutrophils % 65.9 % (40.0-70.0) 02/10/20 07:05 Seg Neutrophils # 7.9 K/mm3 (1.8-7.7) H 02/10/20 07:05 Sodium 143 mmol/L (137-145) D 02/10/20 07:05 Potassium 3.8 mmol/L (3.6-5.0) 02/10/20 07:05 Chloride 106.1 mmol/L (98-107) 02/10/20 07:05 Carbon Dioxide 27 mmol/L (22-30) 02/10/20 07:05 Anion Gap 14 mmol/L 02/10/20 07:05 BUN 11 mg/dL (9-20) 02/10/20 07:05 Creatinine 0.7 mg/dL (0.8-1.5) L 02/10/20 07:05 Estimated GFR > 60 ml/min 02/10/20 07:05 BUN/Creatinine Ratio 16 % 02/10/20 07:05 Glucose 136 mg/dL (75-100) H 02/10/20 07:05 POC Glucose 141 (70-105) H 02/11/20 06:52 Hemoglobin A1c 5.8 % (4-6) 02/10/20 07:05 Calcium 9.1 mg/dL (8.4-10.2) 02/10/20 07:05 Total Bilirubin 0.40 mg/dL (0.1-1.2) 02/10/20 07:05 AST 53 units/L (5-40) H 02/10/20 07:05 ALT 91 units/L (7-56) H 02/10/20 07:05 Alkaline Phosphatase 121 units/L (35-129) 02/10/20 07:05 Total Protein 6.9 g/dL (6.3-8.2) 02/10/20 07:05 Albumin 3.9 g/dL (3.9-5) 02/10/20 07:05 Albumin/Globulin Ratio 1.3 % 02/10/20 07:05 Triglycerides 82 mg/dL (2-149) 02/10/20 07:05 Cholesterol 143 mg/dL (50-199) 02/10/20 07:05 LDL Cholesterol Direct 95 mg/dL (50-130) 02/10/20 07:05 HDL Cholesterol 50 mg/dL (40-59) 02/10/20 07:05 Cholesterol/HDL Ratio 2.86 % 02/10/20 07:05 TSH 0.843 mlU/mL (0.270-4.200) 02/10/20 07:05 Thyroxine (T4) 10.8 ug/dL (4.0-12.0) 02/10/20 07:05 Free T3 Index 2.6 pg/mL (2.3-4.2) 02/10/20 07:05 Last Vital Signs Temp 98.6 F 02/11/20 10:00 Pulse 86 05/19/20 19:11 Resp 18 02/11/20 10:00 BP 173/79 02/11/20 19:11 Pulse Ox 96 02/11/20 19:11
[2020-02-12] MEDS: QUEtiapine 100 MG TAB PO SCH ×2 (10:23→21:33)
[2020-02-12] MEDS: NICOTINE 7 MG/24 HR PATCH TD SCH (10:23)
[2020-02-12] MEDS: VENLAFAXINE XR 75 MG CAP PO SCH (10:23)
[2020-02-12] MEDS: traZODone 50 MG TAB PO SCH (21:33)
--- NOTE | 2020-02-13 06:56 | Progress Note ---
Subjective Date of service: 02/13/20 Principal diagnosis: MDD (major depressive disorder), recurrent severe, without psychosis Subjective Comment: Nurse note: pt spent his evening in bed sleeping, pt refused vital signs, refused bedtime snack, he reported feeling well, medication compliant, denies pain, denies si/hi, denies a/v/h, no complaints voiced, will continue to monitor for safety, safety maintained Psych Progress Patient not wanting to be interviewed this AM. Selectively mute but making needs known. Reason for continuing inpatient psychiatric hospitalization: Persistent depressed mood accompanied by Suicidal ideation MENTAL STATUS EXAMINATION General Appearance and Behavior: Age appropriate, fair hygiene, wearing appropriate clothes, good/poor eye contact, cooperative with questioning and polite Cooperation: Withdrawn Psychomotor Behavior: unremarkable and within normal limits Mood: Depressed Affect and affective range: congruent with mood Thought Process: n/a Thought Content: n/a Speech: n/a Intellectual Functioning: Average Suicidal Ideation: Passive Homicidal Ideation: n/a Impulse Control: n/a Insight and Judgment: Normal insight and judgment Memory: Normal Attention: Normal Orientation: Alert, oriented Assessment and Plan - Psychiatric problem (1) MDD (major depressive disorder), recurrent severe, without psychosis Current Visit: Yes Status: Acute (2) Substance use disorder Current Visit: Yes Status: Acute Treatment Plan: Continue current medication regimen Patient will be admitted for inpatient psychiatric evaluation, medication adjustment and close monitoring The patient's behavior, mood, sleep and appetite will be closely monitored. Patient will be enrolled in individual and group therapeutic sessions and encouraged to attend. Patient will be provided with a safe and structured environment. Patient's physical health needs will be addressed by the Hospitalist. Hospitalist Consulted Labs including CBC, CMP, Lipid profile and Hemoglobin A1C ordered Social Assessment will be completed and the Sports Team Marketing Intern will work with patient and family to ensure a suitable and safe disposition Medication adjustment : Continue current medications Usual Wellness Congregational/Preservation: - Start Trazodone 50 mg po QHS & 50 mg po QHS PRN between 10 PM & 2 AM for insomnia - Start Melatonin 5 mg po QHS to promote circadian rhythm - Start [place]-3 for brain health, reduce impulsivity, and as adjunctive treatment for mood disorder, continue upon discharge given overall benefits. - Start B1 prophylaxis with 200 mg po for 5 days The patient agreed on the treatment plan, understood the risk, benefit, alternative treatment, potential consequence of no treatment, and gave informed consent. This is an acknowledgement statement that EMMY ROBERTS is a 74 year old M who requires inpatient psychiatric admission for treatment which could reasonably be expected to improve the patient's condition for Estimated period of time patient will need to remain in the hospital: [ 4] Plan for post-hospital care: [ outpatient] Assessment and Plan - Patient Problems (1) MDD (major depressive disorder), recurrent severe, without psychosis Current Visit: Yes Status: Acute (2) Substance use disorder Current Visit: Yes Status: Acute Medications and Allergies Allergies Allergy/AdvReac Type Severity Reaction Status Date / Time Penicillins Allergy Anaphylaxis Verified 02/08/20 17:39 Home Medications Medication Instructions Recorded Confirmed Last Taken Type No Known Home Medications [No 02/08/20 02/09/20 Unknown History Reported Home Medications] Active Meds: Active Medications Acetaminophen (Tylenol) 975 mg PO Q6H PRN PRN Reason: Pain, Mild (1-3) Hydralazine HCl (Apresoline) 10 mg IV Q6HR PRN PRN Reason: Hypertension Nicotine (Habitrol) 7 mg TD QDAY [facility] Last Admin: 02/12/20 10:23 Dose: 7 mg Documented by: Quetiapine Fumarate (Seroquel) 50 mg PO BID [facility] Last Admin: 02/12/20 21:33 Dose: 50 mg Documented by: Trazodone HCl (Desyrel) 50 mg PO QHS [facility] Last Admin: 02/12/20 21:33 Dose: 50 mg Documented by: Venlafaxine HCl (Effexor Xr) 75 mg PO QDAY [facility] Last Admin: 02/12/20 10:23 Dose: 75 mg Documented by: Zolpidem Tartrate (Ambien) 5 mg PO QHS PRN PRN Reason: Sleep Results - Results Labs/Vitals: Laboratory Last Values WBC 12.0 K/mm3 (4.5-11.0) H 02/10/20 07:05 RBC 4.33 M/mm3 (3.65-5.03) 02/10/20 07:05 Hgb 14.1 gm/dl (11.8-15.2) 02/10/20 07:05 Hct 42.4 % (35.5-45.6) 02/10/20 07:05 MCV 98 fl (84-94) H 02/10/20 07:05 MCH 33 pg (28-32) H 02/10/20 07:05 MCHC 33 % (32-34) 02/10/20 07:05 RDW 13.8 % (13.2-15.2) 02/10/20 07:05 Plt Count 240 K/mm3 (140-440) 02/10/20 07:05 Lymph % (Auto) 18.1 % (13.4-35.0) 02/10/20 07:05 [place] % (Auto) 12.6 % (0.0-7.3) H 02/10/20 07:05 Eos % (Auto) 2.1 % (0.0-4.3) 02/10/20 07:05 Baso % (Auto) 1.3 % (0.0-1.8) 02/10/20 07:05 Lymph # 2.2 K/mm3 (1.2-5.4) 02/10/20 07:05 [place] # 1.5 K/mm3 (0.0-0.8) H 02/10/20 07:05 Eos # 0.2 K/mm3 (0.0-0.4) 02/10/20 07:05 Baso # 0.2 K/mm3 (0.0-0.1) H 02/10/20 07:05 Seg Neutrophils % 65.9 % (40.0-70.0) 02/10/20 07:05 Seg Neutrophils # 7.9 K/mm3 (1.8-7.7) H 02/10/20 07:05 Sodium 143 mmol/L (137-145) D 02/10/20 07:05 Potassium 3.8 mmol/L (3.6-5.0) 02/10/20 07:05 Chloride 106.1 mmol/L (98-107) 02/10/20 07:05 Carbon Dioxide 27 mmol/L (22-30) 02/10/20 07:05 Anion Gap 14 mmol/L 02/10/20 07:05 BUN 11 mg/dL (9-20) 02/10/20 07:05 Creatinine 0.7 mg/dL (0.8-1.5) L 02/10/20 07:05 Estimated GFR > 60 ml/min 02/10/20 07:05 BUN/Creatinine Ratio 16 % 02/10/20 07:05 Glucose 136 mg/dL (75-100) H 02/10/20 07:05 POC Glucose 141 (70-105) H 02/11/20 06:52 Hemoglobin A1c 5.8 % (4-6) 02/10/20 07:05 Calcium 9.1 mg/dL (8.4-10.2) 02/10/20 07:05 Total Bilirubin 0.40 mg/dL (0.1-1.2) 02/10/20 07:05 AST 53 units/L (5-40) H 02/10/20 07:05 ALT 91 units/L (7-56) H 02/10/20 07:05 Alkaline Phosphatase 121 units/L (35-129) 02/10/20 07:05 Total Protein 6.9 g/dL (6.3-8.2) 02/10/20 07:05 Albumin 3.9 g/dL (3.9-5) 02/10/20 07:05 Albumin/Globulin Ratio 1.3 % 02/10/20 07:05 Triglycerides 82 mg/dL (2-149) 02/10/20 07:05 Cholesterol 143 mg/dL (50-199) 02/10/20 07:05 LDL Cholesterol Direct 95 mg/dL (50-130) 02/10/20 07:05 HDL Cholesterol 50 mg/dL (40-59) 02/10/20 07:05 Cholesterol/HDL Ratio 2.86 % 02/10/20 07:05 TSH 0.843 mlU/mL (0.270-4.200) 02/10/20 07:05 Thyroxine (T4) 10.8 ug/dL (4.0-12.0) 02/10/20 07:05 Free T3 Index 2.6 pg/mL (2.3-4.2) 02/10/20 07:05 Last Vital Signs Temp 99.4 F 02/12/20 08:40 Pulse 83 02/12/20 08:40 Resp 20 02/12/20 08:40 BP 144/82 02/12/20 08:40 Pulse Ox 97 02/12/20 08:40
[2020-02-13] MEDS: NICOTINE 7 MG/24 HR PATCH TD SCH (09:34)
[2020-02-13] MEDS: VENLAFAXINE XR 75 MG CAP PO SCH (09:37)
[2020-02-13] MEDS: QUEtiapine 100 MG TAB PO SCH ×2 (09:37→21:07)
[2020-02-13] MEDS ORDERED: diphenhydrAMINE 50 MG/ML VIAL IM PRN (18:15)
[2020-02-13] MEDS ORDERED: ZIPRASIDONE MESYLATE 20 MG VIAL IM PRN (18:18)
[2020-02-13] MEDS: traZODone 50 MG TAB PO SCH (21:07)
[2020-02-14] MEDS: NICOTINE 7 MG/24 HR PATCH TD SCH (09:36)
[2020-02-14] MEDS: VENLAFAXINE XR 75 MG CAP PO SCH (09:36)
[2020-02-14] MEDS: QUEtiapine 100 MG TAB PO SCH (09:36)
--- NOTE | 2020-02-14 09:42 | Progress Note ---
Subjective Date of service: 02/14/20 Principal diagnosis: MDD (major depressive disorder), recurrent severe, without psychosis Subjective Comment: The patient's medical record was reviewed and the patient's progress discussed with the nursing staff. The nursing staff states the patient had an outburst yesterday and was kicking the door. Also stated he called the staff "bitches." During my interview with the patient this morning, he was awake, sitting off to himself in the dayroom. He is a/o x 2. He seems slightly irritable at times. He states "I like it like this," when asked why was he sitting to himself. When assessing his orientation, he replied, "I'm in the nuthouse." He says he's in a "depressed" mood. He states, "at times I think about not wanting to live, like I want to hurt myself." When asked if he had a plan, the patient replies, "I'd pick a fight with a coppersmith helper." He then says, "I don't feel good. The stuff the doctor gave me yesterday is not working." He then says, "So I just threw it in the trash." The patient verbalizes seeing "shadows at night." The patient says he s leeps "pretty well." He says his his appetite is "okay." Reason for continued admission into the hospital: The patient is depressed, suicidal and hallucinating. REVIEW OF SYSTEMS Constitutional: Negative for weight loss ENT: Negative for stridor Respiratory: Negative for cough or hemoptysis All other systems reviewed and are negative MENTAL STATUS EXAMINATION General Appearance: Dressed appropriately Behavior: Irritable, cooperative. Mood: "Depressed" Affect: Congruent with stated mood Speech: Regular pace and tone Thought Process: Goal directed Thought Content: Suicidal Ideation: Yes Homicidal Ideation: Denies Hallucinations: Visual Delusions: None elicited Insight and Judgment: Limited Memory/Cognition: Limited Assessment Major Depressive Disorder, Severe, with Psychotic Features Treatment Plan Patient will be admitted for inpatient psychiatric evaluation, medication adjustment and close monitoring The patient's behavior, mood, sleep and appetite will be closely monitored. Patient will be enrolled in individual and group therapeutic sessions and encouraged to attend. Patient will be provided with a safe and structured environment. Patient's physical health needs will be addressed by the Hospitalist. Hosp italist Consulted Labs including CBC, CMP, Lipid profile and Hemoglobin A1C ordered Social Assessment will be completed and the Senior Procurement Specialist will work with patient and family to ensure a suitable and safe disposition Medication adjustment will be made as clinically indicated Usual Wellness Protestant/Preservation: D/c seroquel Start Risperidone 0.25mg po daily to improve mood and decrease irritability D/c PRN Ambien Start Melatonin 5mg po prn insomnia The patient agreed on the treatment plan, understood the risk, benefit, alternative treatment, potential consequence of no treatment, and gave informed consent. Estimated period of time patient will need to remain in the hospital: [6] Plan for post-hospital care: [Outpatient] Medications and Allergies Allergies Allergy/AdvReac Type Severity Reaction Status Date / Time Penicillins Allergy Anaphylaxis Verified 02/08/20 17:39 Home Medications Medication Instructions Recorded Confirmed Last Taken Type No Known Home Medications [No 02/08/20 02/09/20 Unknown History Reported Home Medications] Active Meds: Active Medications Acetaminophen (Tylenol) 975 mg PO Q6H PRN PRN Reason: Pain, Mild (1-3) Diphenhydramine HCl (Benadryl) 50 mg IM Q6H PRN PRN Reason: agitation Hydralazine HCl (Apresoline) 10 mg IV Q6HR PRN PRN Reason: Hypertension Nicotine (Habitrol) 7 mg TD QDAY [facility] Last Admin: 02/13/20 09:34 Dose: 7 mg Documented by: Quetiapine Fumarate (Seroquel) 50 mg PO BID [facility] Last Admin: 02/13/20 21:07 Dose: 50 mg Documented by: Trazodone HCl (Desyrel) 50 mg PO QHS [facility] Last Admin: 02/13/20 21:07 Dose: 50 mg Documented by: Venlafaxine HCl (Effexor Xr) 75 mg PO QDAY [facility] Last Admin: 02/13/20 09:37 Dose: Not Given Documented by: Ziprasidone (Geodon) 10 mg IM Q4H PRN PRN Reason: Agitation Zolpidem Tartrate (Ambien) 5 mg PO QHS PRN PRN Reason: Sleep Results - Results Labs/Vitals: Laboratory Last Values WBC 12.0 K/mm3 (4.5-11.0) H 02/10/20 07:05 RBC 4.33 M/mm3 (3.65-5.03) 02/10/20 07:05 Hgb 14.1 gm/dl (11.8-15.2) 02/10/20 07:05 Hct 42.4 % (35.5-45.6) 02/10/20 07:05 MCV 98 fl (84-94) H 02/10/20 07:05 MCH 33 pg (28-32) H 02/10/20 07:05 MCHC 33 % (32-34) 02/10/20 07:05 RDW 13.8 % (13.2-15.2) 02/10/20 07:05 Plt Count 240 K/mm3 (140-440) 02/10/20 07:05 Lymph % (Auto) 18.1 % (13.4-35.0) 02/10/20 07:05 [place] % (Auto) 12.6 % (0.0-7.3) H 02/10/20 07:05 Eos % (Auto) 2.1 % (0.0-4.3) 02/10/20 07:05 Baso % (Auto) 1.3 % (0.0-1.8) 02/10/20 07:05 Lymph # 2.2 K/mm3 (1.2-5.4) 02/10/20 07:05 [place] # 1.5 K/mm3 (0.0-0.8) H 02/10/20 07:05 Eos # 0.2 K/mm3 (0.0-0.4) 02/10/20 07:05 Baso # 0.2 K/mm3 (0.0-0.1) H 02/10/20 07:05 Seg Neutrophils % 65.9 % (40.0-70.0) 02/10/20 07:05 Seg Neutrophils # 7.9 K/mm3 (1.8-7.7) H 02/10/20 07:05 Sodium 143 mmol/L (137-145) D 02/10/20 07:05 Potassium 3.8 mmol/L (3.6-5.0) 02/10/20 07:05 Chloride 106.1 mmol/L (98-107) 02/10/20 07:05 Carbon Dioxide 27 mmol/L (22-30) 02/10/20 07:05 Anion Gap 14 mmol/L 02/10/20 07:05 BUN 11 mg/dL (9-20) 02/10/20 07:05 Creatinine 0.7 mg/dL (0.8-1.5) L 02/10/20 07:05 Estimated GFR > 60 ml/min 02/10/20 07:05 BUN/Creatinine Ratio 16 % 02/10/20 07:05 Glucose 136 mg/dL (75-100) H 02/10/20 07:05 POC Glucose 141 (70-105) H 02/11/20 06:52 Hemoglobin A1c 5.8 % (4-6) 02/10/20 07:05 Calcium 9.1 mg/dL (8.4-10.2) 02/10/20 07:05 Total Bilirubin 0.40 mg/dL (0.1-1.2) 02/10/20 07:05 AST 53 units/L (5-40) H 02/10/20 07:05 ALT 91 units/L (7-56) H 02/10/20 07:05 Alkaline Phosphatase 121 units/L (35-129) 02/10/20 07:05 Total Protein 6.9 g/dL (6.3-8.2) 02/10/20 07:05 Albumin 3.9 g/dL (3.9-5) 02/10/20 07:05 Albumin/Globulin Ratio 1.3 % 02/10/20 07:05 Triglycerides 82 mg/dL (2-149) 02/10/20 07:05 Cholesterol 143 mg/dL (50-199) 02/10/20 07:05 LDL Cholesterol Direct 95 mg/dL (50-130) 02/10/20 07:05 HDL Cholesterol 50 mg/dL (40-59) 02/10/20 07:05 Cholesterol/HDL Ratio 2.86 % 02/10/20 07:05 TSH 0.843 mlU/mL (0.270-4.200) 02/10/20 07:05 Thyroxine (T4) 10.8 ug/dL (4.0-12.0) 02/10/20 07:05 Free T3 Index 2.6 pg/mL (2.3-4.2) 02/10/20 07:05 Last Vital Signs Temp 99.0 F 02/13/20 19:33 Pulse 82 02/13/20 19:33 Resp 20 02/13/20 19:33 BP 172/87 02/13/20 19:33 Pulse Ox 95 02/13/20 19:33
[2020-02-14] MEDS: risperiDONE 0.25 MG TAB PO SCH ×2 (11:17→21:24)
[2020-02-14] MEDS: traZODone 50 MG TAB PO SCH (21:24)
--- NOTE | 2020-02-15 08:53 | Progress Note ---
Subjective Date of service: 02/15/20 Principal diagnosis: MDD (major depressive disorder), recurrent severe, without psychosis Subjective Comment: The patient's medical record was reviewed and the patient's progress discussed with the nursing staff. The nursing staff states the patient is easily irritated. During my interview with the patient this morning, he was awake, sitting in the dayroom eating breakfast. He is a/x o x 2. He makes fair eye contact. He appears irritable. He states, "I'm alive" when asked how he was feeling. When asked about suicidal thoughts, he replies, "all the time." The patient states, "I told you yesterday" when asking if he had a plan. Yesterday the patient told me he had "plans to pick a fight with a copy reader." He replied, "that's true" when I mentioned it to him. He is complaining about his medications, and states, "I told you yesterday that other doctor gave me medications I don't like." He denies hallucinations of any kind. He states, "the only voice i hear is that woman wearing the kerchief on her head." He then says "and I know what it means. It means she is a dike." Reason for continued admission into the hospital: The patient is verbalizing suicidal thoughts REVIEW OF SYSTEMS Constitutional: Negative for weight loss ENT: Negative for stridor Respiratory: Negative for cough or hemoptysis All other systems reviewed and are negative MENTAL STATUS EXAMINATION General Appearance: Dressed appropriately Behavior: Irritable, cooperative. Mood: "I'm alive" Affect: Restricted Speech: Regular pace and tone Thought Process: Goal directed Thought Content: Suicidal Ideation: Yes Homicidal Ideation: Denies Hallucinations: Denies Delusions: None elicited Insight and Judgment: Limited Memory/Cognition: Limited Assessment Major Depressive Disorder, Severe, with Psychotic Features Treatment Plan Patient will be admitted for inpatient psychiatric evaluation, medication adjustment and close monitoring The patient's behavior, mood, sleep and appetite will be closely monitored. Patient will be enrolled in individual and group therapeutic sessions and encouraged to attend. Patient will be provided with a safe and structured environment. Patient's physical health needs will be addressed by the Hospitalist. Hospitalist Consulted Labs including CBC, CMP, Lipid profile and Hemoglobin A1C ordered Social Assessment will be completed and the Improvement Analyst will work with patient and family to ensure a suitable and safe disposition Medication adjustment will be made as clinically indicated Usual Wellness Jain/Preservation: Increase Risperidone 0.5mg po BID to improve mood Zoloft 25mg po daily D/C effexor The patient agreed on the treatment plan, understood the risk, benefit, alternative treatment, potential consequence of no treatment, and gave informed consent. Estimated period of time patient will need to remain in the hospital: [6] Plan for post-hospital care: [Outpatient] Medications and Allergies Allergies Allergy/AdvReac Type Severity Reaction Status Date / Time Penicillins Allergy Anaphylaxis Verified 02/08/20 17:39 Home Medications Medication Instructions Recorded Confirmed Last Taken Type No Known Home Medications [No 02/08/20 02/09/20 Unknown History Reported Home Medications] Active Meds: Active Medications Acetaminophen (Tylenol) 975 mg PO Q6H PRN PRN Reason: Pain, Mild (1-3) Diphenhydramine HCl (Benadryl) 50 mg IM Q6H PRN PRN Reason: agitation Hydralazine HCl (Apresoline) 10 mg IV Q6HR PRN PRN Reason: Hypertension Melatonin (Melatonin) 5 mg PO QHS PRN PRN Reason: Sleep Nicotine (Habitrol) 7 mg TD QDAY [facility] Last Admin: 02/14/20 09:36 Dose: 7 mg Documented by: Risperidone (Risperdal) 0.25 mg PO BID [facility] Last Admin: 02/14/20 21:24 Dose: 0.25 mg Documented by: Trazodone HCl (Desyrel) 50 mg PO QHS [facility] Last Admin: 02/14/20 21:24 Dose: 50 mg Documented by: Venlafaxine HCl (Effexor Xr) 75 mg PO QDAY [facility] Last Admin: 02/14/20 09:36 Dose: 75 mg Documented by: Ziprasidone (Geodon) 10 mg IM Q4H PRN PRN Reason: Agitation Results - Results Labs/Vitals: Laboratory Last Values WBC 12.0 K/mm3 (4.5-11.0) H 02/10/20 07:05 RBC 4.33 M/mm3 (3.65-5.03) 02/10/20 07:05 Hgb 14.1 gm/dl (11.8-15.2) 02/10/20 07:05 Hct 42.4 % (35.5-45.6) 02/10/20 07:05 MCV 98 fl (84-94) H 02/10/20 07:05 MCH 33 pg (28-32) H 02/10/20 07:05 MCHC 33 % (32-34) 02/10/20 07:05 RDW 13.8 % (13.2-15.2) 02/10/20 07:05 Plt Count 240 K/mm3 (140-440) 02/10/20 07:05 Lymph % (Auto) 18.1 % (13.4-35.0) 02/10/20 07:05 [place] % (Auto) 12.6 % (0.0-7.3) H 02/10/20 07:05 Eos % (Auto) 2.1 % (0.0-4.3) 02/10/20 07:05 Baso % (Auto) 1.3 % (0.0-1.8) 02/10/20 07:05 Lymph # 2.2 K/mm3 (1.2-5.4) 02/10/20 07:05 [place] # 1.5 K/mm3 (0.0-0.8) H 02/10/20 07:05 Eos # 0.2 K/mm3 (0.0-0.4) 02/10/20 07:05 Baso # 0.2 K/mm3 (0.0-0.1) H 02/10/20 07:05 Seg Neutrophils % 65.9 % (40.0-70.0) 02/10/20 07:05 Seg Neutrophils # 7.9 K/mm3 (1.8-7.7) H 02/10/20 07:05 Sodium 143 mmol/L (137-145) D 02/10/20 07:05 Potassium 3.8 mmol/L (3.6-5.0) 02/10/20 07:05 Chloride 106.1 mmol/L (98-107) 02/10/20 07:05 Carbon Dioxide 27 mmol/L (22-30) 02/10/20 07:05 Anion Gap 14 mmol/L 02/10/20 07:05 BUN 11 mg/dL (9-20) 02/10/20 07:05 Creatinine 0.7 mg/dL (0.8-1.5) L 02/10/20 07:05 Estimated GFR > 60 ml/min 02/10/20 07:05 BUN/Creatinine Ratio 16 % 02/10/20 07:05 Glucose 136 mg/dL (75-100) H 02/10/20 07:05 POC Glucose 141 (70-105) H 02/11/20 06:52 Hemoglobin A1c 5.8 % (4-6) 02/10/20 07:05 Calcium 9.1 mg/dL (8.4-10.2) 02/10/20 07:05 Total Bilirubin 0.40 mg/dL (0.1-1.2) 02/10/20 07:05 AST 53 units/L (5-40) H 02/10/20 07:05 ALT 91 units/L (7-56) H 02/10/20 07:05 Alkaline Phosphatase 121 units/L (35-129) 02/10/20 07:05 Total Protein 6.9 g/dL (6.3-8.2) 02/10/20 07:05 Albumin 3.9 g/dL (3.9-5) 02/10/20 07:05 Albumin/Globulin Ratio 1.3 % 02/10/20 07:05 Triglycerides 82 mg/dL (2-149) 02/10/20 07:05 Cholesterol 143 mg/dL (50-199) 02/10/20 07:05 LDL Cholesterol Direct 95 mg/dL (50-130) 02/10/20 07:05 HDL Cholesterol 50 mg/dL (40-59) 02/10/20 07:05 Cholesterol/HDL Ratio 2.86 % 02/10/20 07:05 TSH 0.843 mlU/mL (0.270-4.200) 02/10/20 07:05 Thyroxine (T4) 10.8 ug/dL (4.0-12.0) 02/10/20 07:05 Free T3 Index 2.6 pg/mL (2.3-4.2) 02/10/20 07:05 Last Vital Signs Temp 97.6 F 02/14/20 19:42 Pulse 83 02/14/20 19:42 Resp 18 02/14/20 19:42 BP 171/81 02/14/20 19:42 Pulse Ox 94 02/14/20 19:42
[2020-02-15] MEDS: risperiDONE 0.25 MG TAB PO SCH ×2 (09:48→21:15)
[2020-02-15] MEDS: SERTRALINE 25 MG TAB PO SCH (09:48)
[2020-02-15] MEDS: NICOTINE 7 MG/24 HR PATCH TD SCH (09:48)
[2020-02-15] MEDS: traZODone 50 MG TAB PO SCH (21:15)
[2020-02-16] MEDS ORDERED: risperiDONE 0.25 MG TAB PO SCH (08:05)
--- NOTE | 2020-02-16 08:05 | Progress Note ---
Subjective Date of service: 02/16/20 Principal diagnosis: MDD (major depressive disorder), recurrent severe, without psychosis Subjective Comment: The patient's medical record was reviewed and the patient's progress discussed with the nursing staff. The tech states the patient is verbally aggressive and using racist comments. She states he was calling her "monkeys" and telling her to "go back to your country." During my interview with the patient this morning, he was awake, sitting in the dayroom. He is a/x o x 2. He makes good eye contact. He appears irritable and upset. When asked about SI/HI the patient states, "of course I want to hurt myself, but not anybody else." When asked about his mood, he initially just stared at me. I then asked him was he still depressed, he states, "hell yes I am." he denies hallucinations of any kind, stating, "no, I'm not on acid." When telling the patient he is expected to respect everyone here as he would like to be respected, he states, "I only did that to one person. That's her." He then began yelling to the tech, "you're a liar." Reason for continued admission into the hospital: The patient is aggressive and easily agitated. He is also verbalizing suicidal thoughts REVIEW OF SYSTEMS Constitutional: Negative for weight loss ENT: Negative for stridor Respiratory: Negative for cough or hemoptysis All other systems reviewed and are negative MENTAL STATUS EXAMINATION General Appearance: Dressed appropriately Behavior: Irritable, cooperative. Mood: Depressed Affect: Restricted, irritable Speech: Regular pace and tone, at times increased Thought Process: Goal directed Thought Content: Suicidal Ideation: Yes Homicidal Ideation: Denies Hallucinations: Denies Delusions: None elicited Insight and Judgment: Limited Memory/Cognition: Limited Assessment Major Depressive Disorder, Severe, with Psychotic Features Treatment Plan Patient will be admitted for inpatient psychiatric evaluation, medication adjustment and close monitoring The patient's behavior, mood, sleep and appetite will be closely monitored. Patient will be enrolled in individual and group therapeutic sessions and encouraged to attend. Patient will be provided with a safe and structured environment. Patient's physical health needs will be addressed by the Hospitalist. Hospitalist Consulted Labs including CBC, CMP, Lipid profile and Hemoglobin A1C ordered Social Assessment will be completed and the Railroad Police Officer will work with patient and family to ensure a suitable and safe disposition Medication adjustment will be made as clinically indicated Usual Wellness Mandaen/Preservation: Increase Risperidone 1mg po BID to improve mood The patient agreed on the treatment plan, understood the risk, benefit, alternative treatment, potential consequence of no treatment, and gave informed consent. Estimated period of time patient will need to remain in the hospital: [5] Plan for post-hospital care: [Outpatient] Medications and Allergies Allergies Allergy/AdvReac Type Severity Reaction Status Date / Time Penicillins Allergy Anaphylaxis Verified 02/08/20 17:39 Home Medications Medication Instructions Recorded Confirmed Last Taken Type No Known Home Medications [No 02/08/20 02/09/20 Unknown History Reported Home Medications] Active Meds: Active Medications Acetaminophen (Tylenol) 975 mg PO Q6H PRN PRN Reason: Pain, Mild (1-3) Diphenhydramine HCl (Benadryl) 50 mg IM Q6H PRN PRN Reason: agitation Hydralazine HCl (Apresoline) 10 mg IV Q6HR PRN PRN Reason: Hypertension Melatonin (Melatonin) 5 mg PO QHS PRN PRN Reason: Sleep Nicotine (Habitrol) 7 mg TD QDAY [facility] Last Admin: 02/15/20 09:48 Dose: 7 mg Documented by: Risperidone (Risperdal) 0.5 mg PO BID [facility] Last Admin: 02/15/20 21:15 Dose: 0.5 mg Documented by: Sertraline HCl (Zoloft) 25 mg PO QDAY [facility] Last Admin: 02/15/20 09:48 Dose: 25 mg Documented by: Trazodone HCl (Desyrel) 50 mg PO QHS [facility] Last Admin: 02/15/20 21:15 Dose: 50 mg Documented by: Ziprasidone (Geodon) 10 mg IM Q4H PRN PRN Reason: Agitation Results - Results Labs/Vitals: Laboratory Last Values WBC 12.0 K/mm3 (4.5-11.0) H 02/10/20 07:05 RBC 4.33 M/mm3 (3.65-5.03) 02/10/20 07:05 Hgb 14.1 gm/dl (11.8-15.2) 02/10/20 07:05 Hct 42.4 % (35.5-45.6) 02/10/20 07:05 MCV 98 fl (84-94) H 02/10/20 07:05 MCH 33 pg (28-32) H 02/10/20 07:05 MCHC 33 % (32-34) 02/10/20 07:05 RDW 13.8 % (13.2-15.2) 02/10/20 07:05 Plt Count 240 K/mm3 (140-440) 02/10/20 07:05 Lymph % (Auto) 18.1 % (13.4-35.0) 02/10/20 07:05 [place] % (Auto) 12.6 % (0.0-7.3) H 02/10/20 07:05 Eos % (Auto) 2.1 % (0.0-4.3) 02/10/20 07:05 Baso % (Auto) 1.3 % (0.0-1.8) 02/10/20 07:05 Lymph # 2.2 K/mm3 (1.2-5.4) 02/10/20 07:05 [place] # 1.5 K/mm3 (0.0-0.8) H 02/10/20 07:05 Eos # 0.2 K/mm3 (0.0-0.4) 02/10/20 07:05 Baso # 0.2 K/mm3 (0.0-0.1) H 02/10/20 07:05 Seg Neutrophils % 65.9 % (40.0-70.0) 02/10/20 07:05 Seg Neutrophils # 7.9 K/mm3 (1.8-7.7) H 02/10/20 07:05 Sodium 143 mmol/L (137-145) D 02/10/20 07:05 Potassium 3.8 mmol/L (3.6-5.0) 02/10/20 07:05 Chloride 106.1 mmol/L (98-107) 02/10/20 07:05 Carbon Dioxide 27 mmol/L (22-30) 02/10/20 07:05 Anion Gap 14 mmol/L 02/10/20 07:05 BUN 11 mg/dL (9-20) 02/10/20 07:05 Creatinine 0.7 mg/dL (0.8-1.5) L 02/10/20 07:05 Estimated GFR > 60 ml/min 02/10/20 07:05 BUN/Creatinine Ratio 16 % 02/10/20 07:05 Glucose 136 mg/dL (75-100) H 02/10/20 07:05 POC Glucose 141 (70-105) H 02/11/20 06:52 Hemoglobin A1c 5.8 % (4-6) 02/10/20 07:05 Calcium 9.1 mg/dL (8.4-10.2) 02/10/20 07:05 Total Bilirubin 0.40 mg/dL (0.1-1.2) 02/10/20 07:05 AST 53 units/L (5-40) H 02/10/20 07:05 ALT 91 units/L (7-56) H 02/10/20 07:05 Alkaline Phosphatase 121 units/L (35-129) 02/10/20 07:05 Total Protein 6.9 g/dL (6.3-8.2) 02/10/20 07:05 Albumin 3.9 g/dL (3.9-5) 02/10/20 07:05 Albumin/Globulin Ratio 1.3 % 02/10/20 07:05 Triglycerides 82 mg/dL (2-149) 02/10/20 07:05 Cholesterol 143 mg/dL (50-199) 02/10/20 07:05 LDL Cholesterol Direct 95 mg/dL (50-130) 02/10/20 07:05 HDL Cholesterol 50 mg/dL (40-59) 02/10/20 07:05 Cholesterol/HDL Ratio 2.86 % 02/10/20 07:05 TSH 0.843 mlU/mL (0.270-4.200) 02/10/20 07:05 Thyroxine (T4) 10.8 ug/dL (4.0-12.0) 02/10/20 07:05 Free T3 Index 2.6 pg/mL (2.3-4.2) 02/10/20 07:05 Last Vital Signs Temp 98.8 F 02/15/20 19:43 Pulse 72 02/15/20 19:43 Resp 20 02/15/20 19:43 BP 179/80 02/15/20 19:43 Pulse Ox 97 02/15/20 19:43
[2020-02-16] MEDS: NICOTINE 7 MG/24 HR PATCH TD SCH (10:06)
[2020-02-16] MEDS: SERTRALINE 25 MG TAB PO SCH (10:06)
[2020-02-16] MEDS: risperiDONE 1 MG TAB PO SCH ×2 (10:06→21:37)
[2020-02-16] MEDS: MELATONIN 5 MG TAB PO PRN (21:37)
[2020-02-16] MEDS: traZODone 50 MG TAB PO SCH (21:37)
[2020-02-17] MEDS ORDERED: SERTRALINE 25 MG TAB PO SCH (07:58)
--- NOTE | 2020-02-17 07:58 | Progress Note ---
Subjective Date of service: 02/17/20 Principal diagnosis: MDD (major depressive disorder), recurrent severe, without psychosis Subjective Comment: The patient's medical record was reviewed and the patient's progress discussed with the nursing staff. The nurse note states the patient is depressed, and isolated to self. During my interview with the patient this morning, he was awake, sitting in the dayroom. He is a/x o x 3. He makes good eye contact. His affect is restricted. When asking him how he felt, the patient stated, "I'm here." He then states, "I guess I'm depressed." He says he "slept well," but says, "my mind keep racing around." He denies hallucinations of any kind. When asked about any thoughts of self-harm, the patient states, "probably." He just stared at me when I asked him to explain. The patient then states, "did you or the other doctor pass down that I was homeless? That's embarrassing." The patient was assured that all of his information is confidential. Reason for continued admission into the hospital: The patient shows signs of depression, aggressive at times and easily agitated. He also has passive thoughts of dying. REVIEW OF SYSTEMS Constitutional: Negative for weight loss ENT: Negative for stridor Respiratory: Negative for cough or hemoptysis All other systems reviewed and are negative MENTAL STATUS EXAMINATION General Appearance: Dressed appropriately Behavior: Calm, cooperative. Mood: "Depressed" Affect: Restricted Speech: Normal pace and tone Thought Process: Goal directed Thought Content: Suicidal Ideation: Passive Homicidal Ideation: Denies Hallucinations: Denies Delusions: None elicited Insight and Judgment: Limited Memory/Cognition: Limited Assessment Major Depressive Disorder, Severe, with Psychotic Features Treatment Plan Patient will be admitted for inpatient psychiatric evaluation, medication adjustment and close monitoring The patient's behavior, mood, sleep and appetite will be closely monitored. Patient will be enrolled in individual and group therapeutic sessions and encouraged to attend. Patient will be provided with a safe and structured environment. Patient's physical health needs will be addressed by the Hospitalist. Hospitalist Consulted Labs including CBC, CMP, Lipid profile and Hemoglobin A1C ordered Social Assessment will be completed and the Lime Sludge Kiln Operator will work with patient and family to ensure a suitable and safe disposition Medication adjustment will be made as clinically indicated Usual Wellness Judaism/Preservation: Increased Zoloft 50mg po daily Increase Risperidone 2mg po BID to improve mood The patient agreed on the treatment plan, understood the risk, benefit, alternative treatment, potential consequence of no treatment, and gave informed consent. Estimated period of time patient will need to remain in the hospital: [3] Plan for post-hospital care: [Outpatient] Medications and Allergies Allergies Allergy/AdvReac Type Severity Reaction Status Date / Time Penicillins Allergy Anaphylaxis Verified 02/08/20 17:39 Home Medications Medication Instructions Recorded Confirmed Last Taken Type No Known Home Medications [No 02/08/20 02/09/20 Unknown History Reported Home Medications] Active Meds: Active Medications Acetaminophen (Tylenol) 975 mg PO Q6H PRN PRN Reason: Pain, Mild (1-3) Diphenhydramine HCl (Benadryl) 50 mg IM Q6H PRN PRN Reason: agitation Hydralazine HCl (Apresoline) 10 mg IV Q6HR PRN PRN Reason: Hypertension Melatonin (Melatonin) 5 mg PO QHS PRN PRN Reason: Sleep Last Admin: 02/16/20 21:37 Dose: 5 mg Documented by: Nicotine (Habitrol) 7 mg TD QDAY [facility] Last Admin: 02/16/20 10:06 Dose: 7 mg Documented by: Risperidone (Risperdal) 1 mg PO BID [facility] Last Admin: 02/16/20 21:37 Dose: 1 mg Documented by: Sertraline HCl (Zoloft) 25 mg PO QDAY [facility] Last Admin: 02/16/20 10:06 Dose: 25 mg Documented by: Trazodone HCl (Desyrel) 50 mg PO QHS [facility] Last Admin: 02/16/20 21:37 Dose: 50 mg Documented by: Ziprasidone (Geodon) 10 mg IM Q4H PRN PRN Reason: Agitation Results - Results Labs/Vitals: Laboratory Last Values WBC 12.0 K/mm3 (4.5-11.0) H 02/10/20 07:05 RBC 4.33 M/mm3 (3.65-5.03) 02/10/20 07:05 Hgb 14.1 gm/dl (11.8-15.2) 02/10/20 07:05 Hct 42.4 % (35.5-45.6) 02/10/20 07:05 MCV 98 fl (84-94) H 02/10/20 07:05 MCH 33 pg (28-32) H 02/10/20 07:05 MCHC 33 % (32-34) 02/10/20 07:05 RDW 13.8 % (13.2-15.2) 02/10/20 07:05 Plt Count 240 K/mm3 (140-440) 02/10/20 07:05 Lymph % (Auto) 18.1 % (13.4-35.0) 02/10/20 07:05 [place] % (Auto) 12.6 % (0.0-7.3) H 02/10/20 07:05 Eos % (Auto) 2.1 % (0.0-4.3) 02/10/20 07:05 Baso % (Auto) 1.3 % (0.0-1.8) 02/10/20 07:05 Lymph # 2.2 K/mm3 (1.2-5.4) 02/10/20 07:05 [place] # 1.5 K/mm3 (0.0-0.8) H 02/10/20 07:05 Eos # 0.2 K/mm3 (0.0-0.4) 02/10/20 07:05 Baso # 0.2 K/mm3 (0.0-0.1) H 02/10/20 07:05 Seg Neutrophils % 65.9 % (40.0-70.0) 02/10/20 07:05 Seg Neutrophils # 7.9 K/mm3 (1.8-7.7) H 02/10/20 07:05 Sodium 143 mmol/L (137-145) D 02/10/20 07:05 Potassium 3.8 mmol/L (3.6-5.0) 02/10/20 07:05 Chloride 106.1 mmol/L (98-107) 02/10/20 07:05 Carbon Dioxide 27 mmol/L (22-30) 02/10/20 07:05 Anion Gap 14 mmol/L 02/10/20 07:05 BUN 11 mg/dL (9-20) 02/10/20 07:05 Creatinine 0.7 mg/dL (0.8-1.5) L 02/10/20 07:05 Estimated GFR > 60 ml/min 02/10/20 07:05 BUN/Creatinine Ratio 16 % 05/18/20 07:05 Glucose 136 mg/dL (75-100) H 02/10/20 07:05 POC Glucose 141 (70-105) H 02/11/20 06:52 Hemoglobin A1c 5.8 % (4-6) 02/10/20 07:05 Calcium 9.1 mg/dL (8.4-10.2) 02/10/20 07:05 Total Bilirubin 0.40 mg/dL (0.1-1.2) 02/10/20 07:05 AST 53 units/L (5-40) H 02/10/20 07:05 ALT 91 units/L (7-56) H 02/10/20 07:05 Alkaline Phosphatase 121 units/L (35-129) 02/10/20 07:05 Total Protein 6.9 g/dL (6.3-8.2) 02/10/20 07:05 Albumin 3.9 g/dL (3.9-5) 02/10/20 07:05 Albumin/Globulin Ratio 1.3 % 02/10/20 07:05 Triglycerides 82 mg/dL (2-149) 02/10/20 07:05 Cholesterol 143 mg/dL (50-199) 02/10/20 07:05 LDL Cholesterol Direct 95 mg/dL (50-130) 02/10/20 07:05 HDL Cholesterol 50 mg/dL (40-59) 02/10/20 07:05 Cholesterol/HDL Ratio 2.86 % 02/10/20 07:05 TSH 0.843 mlU/mL (0.270-4.200) 02/10/20 07:05 Thyroxine (T4) 10.8 ug/dL (4.0-12.0) 02/10/20 07:05 Free T3 Index 2.6 pg/mL (2.3-4.2) 02/10/20 07:05 Last Vital Signs Temp 98.6 F 02/16/20 19:50 Pulse 85 02/16/20 19:50 Resp 20 02/16/20 19:50 BP 155/70 02/16/20 19:50 Pulse Ox 94 02/16/20 19:50
[2020-02-17] MEDS: SERTRALINE 50 MG TAB PO SCH (09:21)
[2020-02-17] MEDS: risperiDONE 1 MG TAB PO SCH ×2 (09:21→21:04)
[2020-02-17] MEDS: NICOTINE 7 MG/24 HR PATCH TD SCH (09:21)
[2020-02-17] MEDS: ACETAMINOPHEN 325 MG TAB PO PRN ×2 (13:02→21:04)
[2020-02-17] MEDS: traZODone 50 MG TAB PO SCH (21:04)
[2020-02-17] MEDS: MELATONIN 5 MG TAB PO PRN (21:04)
--- NOTE | 2020-02-18 08:39 | Progress Note ---
Subjective Date of service: 02/18/20 Principal diagnosis: MDD (major depressive disorder), recurrent severe, without psychosis Subjective Comment: The patient's medical record was reviewed and the patient's progress discussed with the nursing staff. During my interview with the patient this morning, the patient is in his room getting ready to go down for breakfast. He is a/o x 3. He makes good eye contact. When asking the patient how was he feeling, he replies, "It doesn't seem like I'm doing too good." He then states, "I am depressed, but not quite as depressed as I was." When asking the patient about any harmful thoughts, Mr. Kidd states, "only when I wake up is when I feel like I don't want to live. When I'm sleeping I don't think about it." He states, "I wish I could tell you. But I just don't know." He says he sees "people who've in this hospital. He says they are ghost. They won't bother you." He says he slept "alright." He denies any problems with his appetite. Reason for continued admission into the hospital: The patient shows signs of depression, hallucinating and having passive suicidal thoughts. REVIEW OF SYSTEMS Constitutional: Negative for weight loss ENT: Negative for stridor Respiratory: Negative for cough or hemoptysis All other systems reviewed and are negative MENTAL STATUS EXAMINATION General Appearance: Dressed appropriately Behavior: Calm, cooperative. Mood: "Depressed" Affect: Restricted Speech: Normal pace and tone Thought Process: Goal directed Thought Content: Suicidal Ideation: Passive Homicidal Ideation: Denies Hallucinations: Visual Delusions: None elicited Insight and Judgment: Limited Memory/Cognition: Limited Assessment Major Depressive Disorder, Severe, with Psychotic Features Treatment Plan Patient will be admitted for inpatient psychiatric evaluation, medication adjustment and close monitoring The patient's behavior, mood, sleep and appetite will be closely monitored. Patient will be enrolled in individual and group therapeutic sessions and encouraged to attend. Patient will be provided with a safe and structured environment. Patient's physical health needs will be addressed by the Hospitalist. Hospitalist Consulted Labs including CBC, CMP, Lipid profile and Hemoglobin A1C ordered Social Assessment will be completed and the Motion Picture Scene Builder will work with patient and family to ensure a suitable and safe disposition Medication adjustment will be made as clinically indicated Usual Wellness Zoroastrianism/Preservation: Depakote DR 125mg po BID to improve mood Increased Zoloft 50mg po daily yesterday Increase Risperidone 2mg po BID to improve mood yesterday The patient agreed on the treatment plan, understood the risk, benefit, alternative treatment, potential consequence of no treatment, and gave informed consent. Estimated period of time patient will need to remain in the hospital: [3] Plan for post-hospital care: [Outpatient] Medications and Allergies Allergies Allergy/AdvReac Type Severity Reaction Status Date / Time Penicillins Allergy Anaphylaxis Verified 02/08/20 17:39 Home Medications Medication Instructions Recorded Confirmed Last Taken Type No Known Home Medications [No 02/08/20 02/09/20 Unknown History Reported Home Medications] Active Meds: Active Medications Acetaminophen (Tylenol) 975 mg PO Q6H PRN PRN Reason: Pain, Mild (1-3) Last Admin: 02/17/20 21:04 Dose: 975 mg Documented by: Diphenhydramine HCl (Benadryl) 50 mg IM Q6H PRN PRN Reason: agitation Hydralazine HCl (Apresoline) 10 mg IV Q6HR PRN PRN Reason: Hypertension Melatonin (Melatonin) 5 mg PO QHS PRN PRN Reason: Sleep Last Admin: 02/17/20 21:04 Dose: 5 mg Documented by: Nicotine (Habitrol) 7 mg TD QDAY [facility] Last Admin: 02/17/20 09:21 Dose: 7 mg Documented by: Risperidone (Risperdal) 2 mg PO BID [facility] Last Admin: 02/17/20 21:04 Dose: 2 mg Documented by: Sertraline HCl (Zoloft) 50 mg PO QDAY [facility] Last Admin: 02/17/20 09:21 Dose: 50 mg Documented by: Trazodone HCl (Desyrel) 50 mg PO QHS [facility] Last Admin: 02/17/20 21:04 Dose: 50 mg Documented by: Ziprasidone (Geodon) 10 mg IM Q4H PRN PRN Reason: Agitation Results - Results Labs/Vitals: Laboratory Last Values WBC 12.0 K/mm3 (4.5-11.0) H 02/10/20 07:05 RBC 4.33 M/mm3 (3.65-5.03) 02/10/20 07:05 Hgb 14.1 gm/dl (11.8-15.2) 02/10/20 07:05 Hct 42.4 % (35.5-45.6) 02/10/20 07:05 MCV 98 fl (84-94) H 02/10/20 07:05 MCH 33 pg (28-32) H 02/10/20 07:05 MCHC 33 % (32-34) 02/10/20 07:05 RDW 13.8 % (13.2-15.2) 02/10/20 07:05 Plt Count 240 K/mm3 (140-440) 02/10/20 07:05 Lymph % (Auto) 18.1 % (13.4-35.0) 02/10/20 07:05 [place] % (Auto) 12.6 % (0.0-7.3) H 02/10/20 07:05 Eos % (Auto) 2.1 % (0.0-4.3) 02/10/20 07:05 Baso % (Auto) 1.3 % (0.0-1.8) 02/10/20 07:05 Lymph # 2.2 K/mm3 (1.2-5.4) 02/10/20 07:05 [place] # 1.5 K/mm3 (0.0-0.8) H 02/10/20 07:05 Eos # 0.2 K/mm3 (0.0-0.4) 02/10/20 07:05 Baso # 0.2 K/mm3 (0.0-0.1) H 02/10/20 07:05 Seg Neutrophils % 65.9 % (40.0-70.0) 02/10/20 07:05 Seg Neutrophils # 7.9 K/mm3 (1.8-7.7) H 02/10/20 07:05 Sodium 143 mmol/L (137-145) D 02/10/20 07:05 Potassium 3.8 mmol/L (3.6-5.0) 02/10/20 07:05 Chloride 106.1 mmol/L (98-107) 02/10/20 07:05 Carbon Dioxide 27 mmol/L (22-30) 02/10/20 07:05 Anion Gap 14 mmol/L 02/10/20 07:05 BUN 11 mg/dL (9-20) 02/10/20 07:05 Creatinine 0.7 mg/dL (0.8-1.5) L 02/10/20 07:05 Estimated GFR > 60 ml/min 02/10/20 07:05 BUN/Creatinine Ratio 16 % 02/10/20 07:05 Glucose 136 mg/dL (75-100) H 02/10/20 07:05 POC Glucose 141 (70-105) H 02/11/20 06:52 Hemoglobin A1c 5.8 % (4-6) 02/10/20 07:05 Calcium 9.1 mg/dL (8.4-10.2) 02/10/20 07:05 Total Bilirubin 0.40 mg/dL (0.1-1.2) 02/10/20 07:05 AST 53 units/L (5-40) H 02/10/20 07:05 ALT 91 units/L (7-56) H 02/10/20 07:05 Alkaline Phosphatase 121 units/L (35-129) 02/10/20 07:05 Total Protein 6.9 g/dL (6.3-8.2) 02/10/20 07:05 Albumin 3.9 g/dL (3.9-5) 02/10/20 07:05 Albumin/Globulin Ratio 1.3 % 02/10/20 07:05 Triglycerides 82 mg/dL (2-149) 02/10/20 07:05 Cholesterol 143 mg/dL (50-199) 02/10/20 07:05 LDL Cholesterol Direct 95 mg/dL (50-130) 02/10/20 07:05 HDL Cholesterol 50 mg/dL (40-59) 02/10/20 07:05 Cholesterol/HDL Ratio 2.86 % 02/10/20 07:05 TSH 0.843 mlU/mL (0.270-4.200) 02/10/20 07:05 Thyroxine (T4) 10.8 ug/dL (4.0-12.0) 02/10/20 07:05 Free T3 Index 2.6 pg/mL (2.3-4.2) 02/10/20 07:05 Last Vital Signs Temp 98.6 F 02/17/20 18:59 Pulse 82 02/17/20 18:59 Resp 18 02/17/20 18:59 BP 157/80 02/17/20 18:59 Pulse Ox 94 05/25/20 18:59
[2020-02-18] MEDS: DIVALPROEX DR 125 MG TAB PO SCH ×2 (09:12→21:55)
[2020-02-18] MEDS: NICOTINE 7 MG/24 HR PATCH TD SCH (09:12)
[2020-02-18] MEDS: SERTRALINE 50 MG TAB PO SCH (09:12)
[2020-02-18] MEDS: risperiDONE 1 MG TAB PO SCH ×2 (10:14→21:56)
[2020-02-18] MEDS: ACETAMINOPHEN 325 MG TAB PO PRN (19:17)
[2020-02-18] MEDS: traZODone 50 MG TAB PO SCH (21:55)
[2020-02-18] MEDS: MELATONIN 5 MG TAB PO PRN (21:55)
--- NOTE | 2020-02-19 08:10 | Progress Note ---
Subjective Date of service: 02/19/20 Principal diagnosis: MDD (major depressive disorder), recurrent severe, without psychosis Subjective Comment: The patient's medical record was reviewed and the patient's progress discussed with the nursing staff. The nurse note states the patient reports feeling much the same as he did on admission. The patient states he wouldn't harm himself but "I can pick a fight with someone with a gun". The patient also states "I think I see people that here, a long haired woman. She doesn't seem to want to cause harm". The patient denies hearing voices. During my interview with the patient this morning, he is sitting in his wheelchair. He is dressed appropriately. He is a/o x 3. His affect is restricted. He is calm and cooperative. When asking the patient how was he feeling, he replied, "I'll live." He says his mood is "not too good." He says, "things keep spinning around in my head, these thoughts." When asking the patient were they thoughts to harm himself, the patient replied, "sometimes, but not really. I wish I could explain it." He verbalizes suicidal thoughts, but states, "the thoughts are not as bad as they were." He denies hallucinations of any kind. Reason for continued admission into the hospital: The patient shows signs of depression, and having passive suicidal thoughts. The patient is also unable to care for himself. REVIEW OF SYSTEMS Constitutional: Negative for weight loss ENT: Negative for stridor Respiratory: Negative for cough or hemoptysis All other systems reviewed and are negative MENTAL STATUS EXAMINATION General Appearance: Dressed appropriately Behavior: Calm, cooperative. Mood: "not too good" Affect: Restricted Speech: Normal pace and tone Thought Process: Goal directed Thought Content: Suicidal Ideation: Passive Homicidal Ideation: Denies Hallucinations: Denies Delusions: None elicited Insight and Judgment: Limited Memory/Cognition: Limited Assessment Major Depressive Disorder, Severe, with Psychotic Features Treatment Plan Patient will be admitted for inpatient psychiatric evaluation, medication adjustment and close monitoring The patient's behavior, mood, sleep and appetite will be closely monitored. Patient will be enrolled in individual and group therapeutic sessions and encouraged to attend. Patient will be provided with a safe and structured environment. Patient's physical health needs will be addressed by the Hospitalist. Hospitalist Consulted Labs including CBC, CMP, Lipid profile and Hemoglobin A1C ordered Valproic acid level 02/23/20 Social Assessment will be completed and the Resin Remover will work with patient and family to ensure a suitable and safe disposition Medication adjustment will be made as clinically indicated Usual Wellness Gnosticism/Preservation: Increased Depakote DR 250mg po BID to improve mood The patient agreed on the treatment plan, understood the risk, benefit, alternative treatment, potential consequence of no treatment, and gave informed consent. Estimated period of time patient will need to remain in the hospital: [4] Plan for post-hospital care: [Outpatient] Medications and Allergies Allergies Allergy/AdvReac Type Severity Reaction Status Date / Time Penicillins Allergy Anaphylaxis Verified 02/08/20 17:39 Home Medications Medication Instructions Recorded Confirmed Last Taken Type No Known Home Medications [No 02/08/20 02/09/20 Unknown History Reported Home Medications] Active Meds: Active Medications Acetaminophen (Tylenol) 975 mg PO Q6H PRN PRN Reason: Pain, Mild (1-3) Last Admin: 02/18/20 19:17 Dose: 975 mg Documented by: Diphenhydramine HCl (Benadryl) 50 mg IM Q6H PRN PRN Reason: agitation Divalproex Sodium (Depakote Dr) 125 mg PO BID [facility] Last Admin: 02/18/20 21:55 Dose: 125 mg Documented by: Hydralazine HCl (Apresoline) 10 mg IV Q6HR PRN PRN Reason: Hypertension Melatonin (Melatonin) 5 mg PO QHS PRN PRN Reason: Sleep Last Admin: 02/18/20 21:55 Dose: 5 mg Documented by: Nicotine (Habitrol) 7 mg TD QDAY [facility] Last Admin: 02/18/20 09:12 Dose: 7 mg Documented by: Risperidone (Risperdal) 2 mg PO BID [facility] Last Admin: 02/18/20 21:56 Dose: 2 mg Documented by: Sertraline HCl (Zoloft) 50 mg PO QDAY [facility] Last Admin: 02/18/20 09:12 Dose: 50 mg Documented by: Trazodone HCl (Desyrel) 50 mg PO QHS [facility] Last Admin: 02/18/20 21:55 Dose: 50 mg Documented by: Ziprasidone (Geodon) 10 mg IM Q4H PRN PRN Reason: Agitation Results - Results Labs/Vitals: Laboratory Last Values WBC 12.0 K/mm3 (4.5-11.0) H 02/10/20 07:05 RBC 4.33 M/mm3 (3.65-5.03) 02/10/20 07:05 Hgb 14.1 gm/dl (11.8-15.2) 02/10/20 07:05 Hct 42.4 % (35.5-45.6) 02/10/20 07:05 MCV 98 fl (84-94) H 02/10/20 07:05 MCH 33 pg (28-32) H 02/10/20 07:05 MCHC 33 % (32-34) 02/10/20 07:05 RDW 13.8 % (13.2-15.2) 02/10/20 07:05 Plt Count 240 K/mm3 (140-440) 02/10/20 07:05 Lymph % (Auto) 18.1 % (13.4-35.0) 02/10/20 07:05 [place] % (Auto) 12.6 % (0.0-7.3) H 02/10/20 07:05 Eos % (Auto) 2.1 % (0.0-4.3) 02/10/20 07:05 Baso % (Auto) 1.3 % (0.0-1.8) 02/10/20 07:05 Lymph # 2.2 K/mm3 (1.2-5.4) 02/10/20 07:05 [place] # 1.5 K/mm3 (0.0-0.8) H 02/10/20 07:05 Eos # 0.2 K/mm3 (0.0-0.4) 02/10/20 07:05 Baso # 0.2 K/mm3 (0.0-0.1) H 02/10/20 07:05 Seg Neutrophils % 65.9 % (40.0-70.0) 02/10/20 07:05 Seg Neutrophils # 7.9 K/mm3 (1.8-7.7) H 02/10/20 07:05 Sodium 143 mmol/L (137-145) D 02/10/20 07:05 Potassium 3.8 mmol/L (3.6-5.0) 02/10/20 07:05 Chloride 106.1 mmol/L (98-107) 02/10/20 07:05 Carbon Dioxide 27 mmol/L (22-30) 02/10/20 07:05 Anion Gap 14 mmol/L 02/10/20 07:05 BUN 11 mg/dL (9-20) 02/10/20 07:05 Creatinine 0.7 mg/dL (0.8-1.5) L 02/10/20 07:05 Estimated GFR > 60 ml/min 02/10/20 07:05 BUN/Creatinine Ratio 16 % 02/10/20 07:05 Glucose 136 mg/dL (75-100) H 02/10/20 07:05 POC Glucose 141 (70-105) H 02/11/20 06:52 Hemoglobin A1c 5.8 % (4-6) 02/10/20 07:05 Calcium 9.1 mg/dL (8.4-10.2) 02/10/20 07:05 Total Bilirubin 0.40 mg/dL (0.1-1.2) 02/10/20 07:05 AST 53 units/L (5-40) H 02/10/20 07:05 ALT 91 units/L (7-56) H 02/10/20 07:05 Alkaline Phosphatase 121 units/L (35-129) 02/10/20 07:05 Total Protein 6.9 g/dL (6.3-8.2) 02/10/20 07:05 Albumin 3.9 g/dL (3.9-5) 02/10/20 07:05 Albumin/Globulin Ratio 1.3 % 02/10/20 07:05 Triglycerides 82 mg/dL (2-149) 02/10/20 07:05 Cholesterol 143 mg/dL (50-199) 02/10/20 07:05 LDL Cholesterol Direct 95 mg/dL (50-130) 02/10/20 07:05 HDL Cholesterol 50 mg/dL (40-59) 02/10/20 07:05 Cholesterol/HDL Ratio 2.86 % 02/10/20 07:05 TSH 0.843 mlU/mL (0.270-4.200) 02/10/20 07:05 Thyroxine (T4) 10.8 ug/dL (4.0-12.0) 02/10/20 07:05 Free T3 Index 2.6 pg/mL (2.3-4.2) 02/10/20 07:05 Last Vital Signs Temp 98.1 F 02/18/20 19:42 Pulse 94 H 02/18/20 19:42 Resp 20 02/18/20 19:42 BP 127/72 02/18/20 19:42 Pulse Ox 95 02/18/20 19:42
[2020-02-19] MEDS: DIVALPROEX DR 125 MG TAB PO SCH ×2 (10:17→21:07)
[2020-02-19] MEDS: SERTRALINE 50 MG TAB PO SCH (10:17)
[2020-02-19] MEDS: NICOTINE 7 MG/24 HR PATCH TD SCH (10:17)
[2020-02-19] MEDS: risperiDONE 1 MG TAB PO SCH ×2 (10:17→21:07)
[2020-02-19] MEDS: ACETAMINOPHEN 325 MG TAB PO PRN (16:31)
[2020-02-19] MEDS: traZODone 50 MG TAB PO SCH (21:07)
[2020-02-19] MEDS: MELATONIN 5 MG TAB PO PRN (21:07)
--- NOTE | 2020-02-20 08:18 | Progress Note ---
Subjective Date of service: 02/20/20 Principal diagnosis: MDD (major depressive disorder), recurrent severe, without psychosis Subjective Comment: The patient's medical record was reviewed and the patient's progress discussed with the nursing staff. During my interview with the patient this morning, He is sitting in the dayroom. The patient appears to be in a better mood today. He is a/ox 3. He makes good eye contact. When asking him his mood, he says, "I'd be better if I got out of here." He did verbalize being "depressed," but states, "I'd be better if I got out of here." He denies SI/HI, stating, "no, I'd rather have someone else to hurt me. I'm a coward and wouldn't do it myself." The patient denies hallucinations of any kind. He also denies any problems with his sleep cycle or appetite. Reason for continued admission into the hospital: The patient shows some passive feelings about dying, but has improved significantly. He is unable to care for himself and is waiting on placement. Will continue to stabilize. REVIEW OF SYSTEMS Constitutional: Negative for weight loss ENT: Negative for stridor Respiratory: Negative for cough or hemoptysis All other systems reviewed and are negative MENTAL STATUS EXAMINATION General Appearance: Dressed appropriately Behavior: Calm, cooperative. Mood: "depressed" Affect: Restricted Speech: Normal pace and tone Thought Process: Goal directed Thought Content: Suicidal Ideation: Passive Homicidal Ideation: Denies Hallucinations: Denies Delusions: None elicited Insight and Judgment: Limited Memory/Cognition: Limited Assessment Major Depressive Disorder, Severe, with Psychotic Features Treatment Plan Patient will be admitted for inpatient psychiatric evaluation, medication adjustment and close monitoring The patient's behavior, mood, sleep and appetite will be closely monitored. Patient will be enrolled in individual and group therapeutic sessions and encouraged to attend. Patient will be provided with a safe and structured environment. Patient's physical health needs will be addressed by the Hospitalist. Hospitalist Consulted Labs including CBC, CMP, Lipid profile and Hemoglobin A1C ordered Valproic acid level 02/23/20 Social Assessment will be completed and the Dba will work with patient and family to ensure a suitable and safe disposition Medication adjustment will be made as clinically indicated Usual Wellness Anabaptism/Preservation: No changes made today Depakote DR 250mg po BID to improve mood yesterday The patient agreed on the treatment plan, understood the risk, benefit, alternative treatment, potential consequence of no treatment, and gave informed consent. Estimated period of time patient will need to remain in the hospital: [4] Plan for post-hospital care: [Outpatient] Medications and Allergies Allergies Allergy/AdvReac Type Severity Reaction Status Date / Time Penicillins Allergy Anaphylaxis Verified 02/08/20 17:39 Home Medications Medication Instructions Recorded Confirmed Last Taken Type No Known Home Medications [No 02/08/20 02/09/20 Unknown History Reported Home Medications] Active Meds: Active Medications Acetaminophen (Tylenol) 975 mg PO Q6H PRN PRN Reason: Pain, Mild (1-3) Last Admin: 02/19/20 16:31 Dose: 975 mg Documented by: Diphenhydramine HCl (Benadryl) 50 mg IM Q6H PRN PRN Reason: agitation Divalproex Sodium (Depakote Dr) 250 mg PO BID [facility] Last Admin: 02/19/20 21:07 Dose: 250 mg Documented by: Hydralazine HCl (Apresoline) 10 mg IV Q6HR PRN PRN Reason: Hypertension Melatonin (Melatonin) 5 mg PO QHS PRN PRN Reason: Sleep Last Admin: 02/19/20 21:07 Dose: 5 mg Documented by: Nicotine (Habitrol) 7 mg TD QDAY [facility] Last Admin: 02/19/20 10:17 Dose: 7 mg Documented by: Risperidone (Risperdal) 2 mg PO BID [facility] Last Admin: 02/19/20 21:07 Dose: 2 mg Documented by: Sertraline HCl (Zoloft) 50 mg PO QDAY [facility] Last Admin: 02/19/20 10:17 Dose: 50 mg Documented by: Trazodone HCl (Desyrel) 50 mg PO QHS [facility] Last Admin: 02/19/20 21:07 Dose: 50 mg Documented by: Ziprasidone (Geodon) 10 mg IM Q4H PRN PRN Reason: Agitation Results - Results Labs/Vitals: Laboratory Last Values WBC 12.0 K/mm3 (4.5-11.0) H 02/10/20 07:05 RBC 4.33 M/mm3 (3.65-5.03) 02/10/20 07:05 Hgb 14.1 gm/dl (11.8-15.2) 02/10/20 07:05 Hct 42.4 % (35.5-45.6) 02/10/20 07:05 MCV 98 fl (84-94) H 02/10/20 07:05 MCH 33 pg (28-32) H 02/10/20 07:05 MCHC 33 % (32-34) 02/10/20 07:05 RDW 13.8 % (13.2-15.2) 02/10/20 07:05 Plt Count 240 K/mm3 (140-440) 02/10/20 07:05 Lymph % (Auto) 18.1 % (13.4-35.0) 02/10/20 07:05 [place] % (Auto) 12.6 % (0.0-7.3) H 02/10/20 07:05 Eos % (Auto) 2.1 % (0.0-4.3) 02/10/20 07:05 Baso % (Auto) 1.3 % (0.0-1.8) 02/10/20 07:05 Lymph # 2.2 K/mm3 (1.2-5.4) 02/10/20 07:05 [place] # 1.5 K/mm3 (0.0-0.8) H 02/10/20 07:05 Eos # 0.2 K/mm3 (0.0-0.4) 02/10/20 07:05 Baso # 0.2 K/mm3 (0.0-0.1) H 02/10/20 07:05 Seg Neutrophils % 65.9 % (40.0-70.0) 02/10/20 07:05 Seg Neutrophils # 7.9 K/mm3 (1.8-7.7) H 02/10/20 07:05 Sodium 143 mmol/L (137-145) D 02/10/20 07:05 Potassium 3.8 mmol/L (3.6-5.0) 02/10/20 07:05 Chloride 106.1 mmol/L (98-107) 02/10/20 07:05 Carbon Dioxide 27 mmol/L (22-30) 02/10/20 07:05 Anion Gap 14 mmol/L 02/10/20 07:05 BUN 11 mg/dL (9-20) 02/10/20 07:05 Creatinine 0.7 mg/dL (0.8-1.5) L 02/10/20 07:05 Estimated GFR > 60 ml/min 02/10/20 07:05 BUN/Creatinine Ratio 16 % 02/10/20 07:05 Glucose 136 mg/dL (75-100) H 02/10/20 07:05 POC Glucose 141 (70-105) H 02/11/20 06:52 Hemoglobin A1c 5.8 % (4-6) 02/10/20 07:05 Calcium 9.1 mg/dL (8.4-10.2) 02/10/20 07:05 Total Bilirubin 0.40 mg/dL (0.1-1.2) 02/10/20 07:05 AST 53 units/L (5-40) H 02/10/20 07:05 ALT 91 units/L (7-56) H 02/10/20 07:05 Alkaline Phosphatase 121 units/L (35-129) 02/10/20 07:05 Total Protein 6.9 g/dL (6.3-8.2) 02/10/20 07:05 Albumin 3.9 g/dL (3.9-5) 02/10/20 07:05 Albumin/Globulin Ratio 1.3 % 02/10/20 07:05 Triglycerides 82 mg/dL (2-149) 02/10/20 07:05 Cholesterol 143 mg/dL (50-199) 02/10/20 07:05 LDL Cholesterol Direct 95 mg/dL (50-130) 02/10/20 07:05 HDL Cholesterol 50 mg/dL (40-59) 02/10/20 07:05 Cholesterol/HDL Ratio 2.86 % 02/10/20 07:05 TSH 0.843 mlU/mL (0.270-4.200) 02/10/20 07:05 Thyroxine (T4) 10.8 ug/dL (4.0-12.0) 02/10/20 07:05 Free T3 Index 2.6 pg/mL (2.3-4.2) 02/10/20 07:05 Last Vital Signs Temp 98.1 F 02/19/20 20:16 Pulse 85 02/19/20 20:16 Resp 20 02/19/20 20:16 BP 147/84 02/19/20 20:16 Pulse Ox 94 02/19/20 20:16
[2020-02-20] MEDS: risperiDONE 1 MG TAB PO SCH ×2 (10:50→20:59)
[2020-02-20] MEDS: DIVALPROEX DR 125 MG TAB PO SCH (10:50)
[2020-02-20] MEDS: SERTRALINE 50 MG TAB PO SCH (10:50)
[2020-02-20] MEDS: NICOTINE 7 MG/24 HR PATCH TD SCH (10:50)
[2020-02-20] MEDS: ACETAMINOPHEN 325 MG TAB PO PRN (11:54)
[2020-02-20] MEDS: traZODone 50 MG TAB PO SCH (20:59)
[2020-02-20] MEDS: DIVALPROEX DR 250 MG TAB PO SCH (22:00)
--- NOTE | 2020-02-21 07:00 | Progress Note ---
Subjective Date of service: 02/21/20 Principal diagnosis: MDD (major depressive disorder), recurrent severe, without psychosis Subjective Comment: Nurse note: 1602 Pt. some how feeling depress earlier, spent the most of the day in the activity room, attended group and more interactive now Psych Progress Pt seen and interviewed by me this AM, reports sleeping good and having an improved apetite. Patient expresses anger and concern over a staff spreading words that he his homeless and not happy about that. Patient denies SI, HI but endorses thoughts of SI earlier but not anymore. He describes mood today as good, denies AVH Reason for continuing inpatient psychiatric hospitalization: Plan to discharge on Monday. MENTAL STATUS EXAMINATION General Appearance and Behavior: Age appropriate, fair hygiene, wearing appropriate clothes, good eye contact, cooperative with questioning and polite Cooperation: Cooperative Psychomotor Behavior: unremarkable and within normal limits Mood: Good Affect and affective range: congruent with mood Thought Process: Logical Thought Content: Within Reality Speech:Normal rate, volume and tone Intellectual Functioning: Average Suicidal Ideation: Passive Homicidal Ideation: Denies Impulse Control: Unimpaired Insight and Judgment: Normal insight and judgment Memory: Normal Attention: Normal Orientation: Alert, oriented Assessment and Plan - Psychiatric problem (1) MDD (major depressive disorder), recurrent severe, without psychosis Current Visit: Yes Status: Acute (2) Substance use disorder Current Visit: Yes Status: Acute Treatment Plan: To be discharge on Monday Patient will be admitted for inpatient psychiatric evaluation, medication adjustment and close monitoring The patient's behavior, mood, sleep and appetite will be closely monitored. Patient will be enrolled in individual and group therapeutic sessions and encouraged to attend. Patient will be provided with a safe and structured environment. Patient's physical health needs will be addressed by the Hospitalist. Hospitalist Consulted Labs including CBC, CMP, Lipid profile and Hemoglobin A1C ordered Social Assessment will be completed and the Agricultural Equipment Mechanic will work with patient and family to ensure a suitable and safe disposition Medication adjustment : Continue current medications Usual Wellness Mormon/Preservation: - Start Trazodone 50 mg po QHS & 50 mg po QHS PRN between 10 PM & 2 AM for insomnia - Start Melatonin 5 mg po QHS to promote circadian rhythm - Start [place]-3 for brain health, reduce impulsivity, and as adjunctive treatment for mood disorder, continue upon discharge given overall benefits. - Start B1 prophylaxis with 200 mg po for 5 days The patient agreed on the treatment plan, understood the risk, benefit, alternative treatment, potential consequence of no treatment, and gave informed consent. This is an acknowledgement statement that EMMY ROBERTS is a 74 year old M who requires inpatient psychiatric admission for treatment which could reasonably be expected to improve the patient's condition for Estimated period of time patient will need to remain in the hospital: [ 0] Plan for post-hospital care: [ outpatient] Assessment and Plan - Patient Problems (1) MDD (major depressive disorder), recurrent severe, without psychosis Current Visit: Yes Status: Acute (2) Substance use disorder Current Visit: Yes Status: Acute Medications and Allergies Allergies Allergy/AdvReac Type Severity Reaction Status Date / Time Penicillins Allergy Anaphylaxis Verified 02/08/20 17:39 Home Medications Medication Instructions Recorded Confirmed Last Taken Type No Known Home Medications [No 02/08/20 02/09/20 Unknown History Reported Home Medications] Active Meds: Active Medications Acetaminophen (Tylenol) 975 mg PO Q6H PRN PRN Reason: Pain, Mild (1-3) Last Admin: 02/20/20 11:54 Dose: 975 mg Documented by: Diphenhydramine HCl (Benadryl) 50 mg IM Q6H PRN PRN Reason: agitation Divalproex Sodium (Depakote Dr) 250 mg PO BID [facility] Last Admin: 02/20/20 22:00 Dose: 250 mg Documented by: Hydralazine HCl (Apresoline) 10 mg IV Q6HR PRN PRN Reason: Hypertension Melatonin (Melatonin) 5 mg PO QHS PRN PRN Reason: Sleep Last Admin: 02/19/20 21:07 Dose: 5 mg Documented by: Nicotine (Habitrol) 7 mg TD QDAY [facility] Last Admin: 02/20/20 10:50 Dose: 7 mg Documented by: Risperidone (Risperdal) 2 mg PO BID [facility] Last Admin: 02/20/20 20:59 Dose: 2 mg Documented by: Sertraline HCl (Zoloft) 50 mg PO QDAY [facility] Last Admin: 02/20/20 10:50 Dose: 50 mg Documented by: Trazodone HCl (Desyrel) 50 mg PO QHS [facility] Last Admin: 02/20/20 20:59 Dose: 50 mg Documented by: Ziprasidone (Geodon) 10 mg IM Q4H PRN PRN Reason: Agitation Results - Results Labs/Vitals: Laboratory Last Values WBC 12.0 K/mm3 (4.5-11.0) H 02/10/20 07:05 RBC 4.33 M/mm3 (3.65-5.03) 02/10/20 07:05 Hgb 14.1 gm/dl (11.8-15.2) 02/10/20 07:05 Hct 42.4 % (35.5-45.6) 02/10/20 07:05 MCV 98 fl (84-94) H 02/10/20 07:05 MCH 33 pg (28-32) H 02/10/20 07:05 MCHC 33 % (32-34) 02/10/20 07:05 RDW 13.8 % (13.2-15.2) 02/10/20 07:05 Plt Count 240 K/mm3 (140-440) 02/10/20 07:05 Lymph % (Auto) 18.1 % (13.4-35.0) 02/10/20 07:05 [place] % (Auto) 12.6 % (0.0-7.3) H 02/10/20 07:05 Eos % (Auto) 2.1 % (0.0-4.3) 02/10/20 07:05 Baso % (Auto) 1.3 % (0.0-1.8) 02/10/20 07:05 Lymph # 2.2 K/mm3 (1.2-5.4) 02/10/20 07:05 [place] # 1.5 K/mm3 (0.0-0.8) H 02/10/20 07:05 Eos # 0.2 K/mm3 (0.0-0.4) 02/10/20 07:05 Baso # 0.2 K/mm3 (0.0-0.1) H 02/10/20 07:05 Seg Neutrophils % 65.9 % (40.0-70.0) 02/10/20 07:05 Seg Neutrophils # 7.9 K/mm3 (1.8-7.7) H 02/10/20 07:05 Sodium 143 mmol/L (137-145) D 02/10/20 07:05 Potassium 3.8 mmol/L (3.6-5.0) 02/10/20 07:05 Chloride 106.1 mmol/L (98-107) 02/10/20 07:05 Carbon Dioxide 27 mmol/L (22-30) 02/10/20 07:05 Anion Gap 14 mmol/L 02/10/20 07:05 BUN 11 mg/dL (9-20) 02/10/20 07:05 Creatinine 0.7 mg/dL (0.8-1.5) L 02/10/20 07:05 Estimated GFR > 60 ml/min 02/10/20 07:05 BUN/Creatinine Ratio 16 % 02/10/20 07:05 Glucose 136 mg/dL (75-100) H 02/10/20 07:05 POC Glucose 141 (70-105) H 02/11/20 06:52 Hemoglobin A1c 5.8 % (4-6) 02/10/20 07:05 Calcium 9.1 mg/dL (8.4-10.2) 02/10/20 07:05 Total Bilirubin 0.40 mg/dL (0.1-1.2) 02/10/20 07:05 AST 53 units/L (5-40) H 02/10/20 07:05 ALT 91 units/L (7-56) H 02/10/20 07:05 Alkaline Phosphatase 121 units/L (35-129) 02/10/20 07:05 Total Protein 6.9 g/dL (6.3-8.2) 02/10/20 07:05 Albumin 3.9 g/dL (3.9-5) 02/10/20 07:05 Albumin/Globulin Ratio 1.3 % 02/10/20 07:05 Triglycerides 82 mg/dL (2-149) 02/10/20 07:05 Cholesterol 143 mg/dL (50-199) 02/10/20 07:05 LDL Cholesterol Direct 95 mg/dL (50-130) 02/10/20 07:05 HDL Cholesterol 50 mg/dL (40-59) 02/10/20 07:05 Cholesterol/HDL Ratio 2.86 % 02/10/20 07:05 TSH 0.843 mlU/mL (0.270-4.200) 02/10/20 07:05 Thyroxine (T4) 10.8 ug/dL (4.0-12.0) 02/10/20 07:05 Free T3 Index 2.6 pg/mL (2.3-4.2) 02/10/20 07:05 Last Vital Signs Temp 97.9 F 02/20/20 08:52 Pulse 84 02/20/20 19:16 Resp 18 02/20/20 08:52 BP 138/66 02/20/20 19:16 Pulse Ox 95 02/20/20 19:16
[2020-02-21] MEDS: NICOTINE 7 MG/24 HR PATCH TD SCH (10:00)
[2020-02-21] MEDS: risperiDONE 1 MG TAB PO SCH ×2 (10:21→22:10)
[2020-02-21] MEDS: SERTRALINE 50 MG TAB PO SCH (10:21)
[2020-02-21] MEDS: DIVALPROEX DR 250 MG TAB PO SCH ×2 (10:21→22:09)
[2020-02-21] MEDS: ACETAMINOPHEN 325 MG TAB PO PRN (14:26)
--- NOTE | 2020-02-21 14:54 | XRay Report ---
CHEST 1 VIEW INDICATION / CLINICAL INFORMATION: Psych facility. COMPARISON: 02/03/2020 FINDINGS: SUPPORT DEVICES: None. HEART / MEDIASTINUM: No significant abnormality. LUNGS / PLEURA: No significant pulmonary or pleural abnormality. No pneumothorax. ADDITIONAL FINDINGS: No significant additional findings. IMPRESSION: No acute disease or interval change from 02/03/2020 Signer Name: Mark Anthony Cotter MD FACR Signed: 02/21/2020 2:50 PM Workstation Name: [email or web address]
[2020-02-21] MEDS: traZODone 50 MG TAB PO SCH (22:09)
--- NOTE | 2020-02-22 06:57 | Progress Note ---
Subjective Date of service: 02/22/20 Principal diagnosis: MDD (major depressive disorder), recurrent severe, without psychosis Subjective Comment: Nurse note: Patient presents as calm and content. He has pleasant interactions with peers and staff. He denies si/hi/ah/vh. Patient mostly isolates to his room. He was medication compliant. Will continue to monitor patient for safety. Psych Progress: Patient seen in the hallway trying to wheel himself to social room, patient reports feeling so much better, has been sleeping good with a much improved appetite. Patient denies any depressed mood today denies any suicidal homicidal thoughts and looking forward to his discharge on Monday. Reason for continuing inpatient psychiatric hospitalization: Continue to observe for mood stability, patient to be discharged Monday morning if no changes in behavior and no complaints about medication MENTAL STATUS EXAMINATION General Appearance and Behavior: Age appropriate, fair hygiene, wearing appropriate clothes, good eye contact, cooperative with questioning and polite Cooperation: Cooperative Psychomotor Behavior: unremarkable and within normal limits Mood: Good Affect and affective range: congruent with mood Thought Process: Logical Thought Content: Within Reality Speech:Normal rate, volume and tone Intellectual Functioning: Average Suicidal Ideation: Passive Homicidal Ideation: Denies Impulse Control: Unimpaired Insight and Judgment: Normal insight and judgment Memory: Normal Attention: Normal Orientation: Alert, oriented Assessment and Plan - Psychiatric problem (1) MDD (major depressive disorder), recurrent severe, without psychosis Current Visit: Yes Status: Acute (2) Substance use disorder Current Visit: Yes Status: Acute Treatment Plan: To be discharge on Monday Patient will be admitted for inpatient psychiatric evaluation, medication adjustment and close monitoring The patient's behavior, mood, sleep and appetite will be closely monitored. Patient will be enrolled in individual and group therapeutic sessions and encouraged to attend. Patient will be provided with a safe and structured environment. Patient's physical health needs will be addressed by the Hospitalist. Hospitalist Consulted Labs including CBC, CMP, Lipid profile and Hemoglobin A1C ordered Social Assessment will be completed and the Laborer Livestock will work with patient and family to ensure a suitable and safe disposition Medication adjustment : Continue current medications Usual Wellness Anabaptist/Preservation: - Start Trazodone 50 mg po QHS & 50 mg po QHS PRN between 10 PM & 2 AM for insomnia - Start Melatonin 5 mg po QHS to promote circadian rhythm - Start [place]-3 for brain health, reduce impulsivity, and as adjunctive treatment for mood disorder, continue upon discharge given overall benefits. - Start B1 prophylaxis with 200 mg po for 5 days The patient agreed on the treatment plan, understood the risk, benefit, alternative treatment, potential consequence of no treatment, and gave informed consent. This is an acknowledgement statement that EMMY ROBERTS is a 74 year old M who requires inpatient psychiatric admission for treatment which could reasonably be expected to improve the patient's condition for Estimated period of time patient will need to remain in the hospital: [ 0] Plan for post-hospital care: [ outpatient] Assessment and Plan - Patient Problems (1) MDD (major depressive disorder), recurrent severe, without psychosis Current Visit: Yes Status: Acute (2) Substance use disorder Current Visit: Yes Status: Acute Medications and Allergies Allergies Allergy/AdvReac Type Severity Reaction Status Date / Time Penicillins Allergy Anaphylaxis Verified 02/08/20 17:39 Home Medications Medication Instructions Recorded Confirmed Last Taken Type No Known Home Medications [No 02/08/20 02/09/20 Unknown History Reported Home Medications] Active Meds: Active Medications Acetaminophen (Tylenol) 975 mg PO Q6H PRN PRN Reason: Pain, Mild (1-3) Last Admin: 02/21/20 14:26 Dose: 975 mg Documented by: Diphenhydramine HCl (Benadryl) 50 mg IM Q6H PRN PRN Reason: agitation Divalproex Sodium (Depakote Dr) 250 mg PO BID [facility] Last Admin: 02/21/20 22:09 Dose: 250 mg Documented by: Hydralazine HCl (Apresoline) 10 mg IV Q6HR PRN PRN Reason: Hypertension Melatonin (Melatonin) 5 mg PO QHS PRN PRN Reason: Sleep Last Admin: 02/19/20 21:07 Dose: 5 mg Documented by: Nicotine (Habitrol) 7 mg TD QDAY [facility] Last Admin: 02/21/20 10:00 Dose: 7 mg Documented by: Risperidone (Risperdal) 2 mg PO BID [facility] Last Admin: 02/21/20 22:10 Dose: 2 mg Documented by: Sertraline HCl (Zoloft) 50 mg PO QDAY [facility] Last Admin: 02/21/20 10:21 Dose: 50 mg Documented by: Trazodone HCl (Desyrel) 50 mg PO QHS [facility] Last Admin: 02/21/20 22:09 Dose: 50 mg Documented by: Ziprasidone (Geodon) 10 mg IM Q4H PRN PRN Reason: Agitation Results - Results Labs/Vitals: Laboratory Last Values WBC 12.0 K/mm3 (4.5-11.0) H 02/10/20 07:05 RBC 4.33 M/mm3 (3.65-5.03) 02/10/20 07:05 Hgb 14.1 gm/dl (11.8-15.2) 02/10/20 07:05 Hct 42.4 % (35.5-45.6) 02/10/20 07:05 MCV 98 fl (84-94) H 02/10/20 07:05 MCH 33 pg (28-32) H 02/10/20 07:05 MCHC 33 % (32-34) 02/10/20 07:05 RDW 13.8 % (13.2-15.2) 02/10/20 07:05 Plt Count 240 K/mm3 (140-440) 02/10/20 07:05 Lymph % (Auto) 18.1 % (13.4-35.0) 02/10/20 07:05 [place] % (Auto) 12.6 % (0.0-7.3) H 02/10/20 07:05 Eos % (Auto) 2.1 % (0.0-4.3) 02/10/20 07:05 Baso % (Auto) 1.3 % (0.0-1.8) 02/10/20 07:05 Lymph # 2.2 K/mm3 (1.2-5.4) 02/10/20 07:05 [place] # 1.5 K/mm3 (0.0-0.8) H 02/10/20 07:05 Eos # 0.2 K/mm3 (0.0-0.4) 02/10/20 07:05 Baso # 0.2 K/mm3 (0.0-0.1) H 02/10/20 07:05 Seg Neutrophils % 65.9 % (40.0-70.0) 02/10/20 07:05 Seg Neutrophils # 7.9 K/mm3 (1.8-7.7) H 02/10/20 07:05 Sodium 143 mmol/L (137-145) D 02/10/20 07:05 Potassium 3.8 mmol/L (3.6-5.0) 02/10/20 07:05 Chloride 106.1 mmol/L (98-107) 02/10/20 07:05 Carbon Dioxide 27 mmol/L (22-30) 02/10/20 07:05 Anion Gap 14 mmol/L 02/10/20 07:05 BUN 11 mg/dL (9-20) 02/10/20 07:05 Creatinine 0.7 mg/dL (0.8-1.5) L 02/10/20 07:05 Estimated GFR > 60 ml/min 02/10/20 07:05 BUN/Creatinine Ratio 16 % 02/10/20 07:05 Glucose 136 mg/dL (75-100) H 02/10/20 07:05 POC Glucose 141 (70-105) H 02/11/20 06:52 Hemoglobin A1c 5.8 % (4-6) 02/10/20 07:05 Calcium 9.1 mg/dL (8.4-10.2) 02/10/20 07:05 Total Bilirubin 0.40 mg/dL (0.1-1.2) 02/10/20 07:05 AST 53 units/L (5-40) H 02/10/20 07:05 ALT 91 units/L (7-56) H 02/10/20 07:05 Alkaline Phosphatase 121 units/L (35-129) 02/10/20 07:05 Total Protein 6.9 g/dL (6.3-8.2) 02/10/20 07:05 Albumin 3.9 g/dL (3.9-5) 02/10/20 07:05 Albumin/Globulin Ratio 1.3 % 02/10/20 07:05 Triglycerides 82 mg/dL (2-149) 02/10/20 07:05 Cholesterol 143 mg/dL (50-199) 02/10/20 07:05 LDL Cholesterol Direct 95 mg/dL (50-130) 02/10/20 07:05 HDL Cholesterol 50 mg/dL (40-59) 02/10/20 07:05 Cholesterol/HDL Ratio 2.86 % 02/10/20 07:05 TSH 0.843 mlU/mL (0.270-4.200) 02/10/20 07:05 Thyroxine (T4) 10.8 ug/dL (4.0-12.0) 02/10/20 07:05 Free T3 Index 2.6 pg/mL (2.3-4.2) 02/10/20 07:05 Last Vital Signs Temp 97.9 F 02/21/20 08:55 Pulse 106 H 02/21/20 08:55 Resp 18 02/21/20 08:55 BP 125/73 02/21/20 08:55 Pulse Ox 96 02/21/20 08:55
[2020-02-22] MEDS: DIVALPROEX DR 250 MG TAB PO SCH ×2 (09:23→21:51)
[2020-02-22] MEDS: SERTRALINE 50 MG TAB PO SCH (09:23)
[2020-02-22] MEDS: NICOTINE 7 MG/24 HR PATCH TD SCH (09:23)
[2020-02-22] MEDS: ACETAMINOPHEN 325 MG TAB PO PRN (09:57)
[2020-02-22] MEDS: risperiDONE 1 MG TAB PO SCH ×2 (09:58→21:52)
[2020-02-22] MEDS: traZODone 50 MG TAB PO SCH (21:51)
--- NOTE | 2020-02-23 06:49 | Progress Note ---
Subjective Date of service: 02/23/20 Principal diagnosis: MDD (major depressive disorder), recurrent severe, without psychosis Subjective Comment: Nurse note: Patient is alert and oriented x3, calm and cooperative, compliant with medication, able to make needs known, spent his day in the dayroom pt interact well with peers, pt is medication compliant,eat 100% meals, pt denies si/hi, denies a/v/h, no distress noted, will continue to monitor for safety. Psych Progress: Patient found and awake seated on the side, says he has been up for about 3 hours now, sleep has not been great but did not get PRN sleep medication. Patient describes mood yesterday was much better and its too early to tell today. He reports missing his friends, says they are all gone and discharged from here and his beginning to feel lonely. Patient hopes he will be discharged tomorrow but to a different place he hopes. Denies SI/HI. Reason for continuing inpatient psychiatric hospitalization: Insomrichard, will adjust meds today. Patient to be discharged Monday if no changes in behavior and no complaints about medication MENTAL STATUS EXAMINATION General Appearance and Behavior: Age appropriate, fair hygiene, wearing appropriate clothes, good eye contact, cooperative with questioning and polite Cooperation: Cooperative Psychomotor Behavior: unremarkable and within normal limits Mood: Good Affect and affective range: congruent with mood Thought Process: Logical Thought Content: Within Reality Speech:Normal rate, volume and tone Intellectual Functioning: Average Suicidal Ideation: Passive Homicidal Ideation: Denies Impulse Control: Unimpaired Insight and Judgment: Normal insight and judgment Memory: Normal Attention: Normal Orientation: Alert, oriented Assessment and Plan - Psychiatric problem (1) MDD (major depressive disorder), recurrent severe, without psychosis Current Visit: Yes Status: Acute (2) Substance use disorder Current Visit: Yes Status: Acute Treatment Plan: 10 mg Melatonin BEBE QHS started today for insomnia Patient will be admitted for inpatient psychiatric evaluation, medication adjustment and close monitoring The patient's behavior, mood, sleep and appetite will be closely monitored. Patient will be enrolled in individual and group therapeutic sessions and encouraged to attend. Patient will be provided with a safe and structured environment. Patient's physical health needs will be addressed by the Hospitalist. Hospitalist Consulted Labs including CBC, CMP, Lipid profile and Hemoglobin A1C ordered Social Assessment will be completed and the Hay Farmer will work with patient and family to ensure a suitable and safe disposition Medication adjustment : Continue current medications Usual Wellness Jewish/Preservation: - Start Trazodone 50 mg po QHS & 50 mg po QHS PRN between 10 PM & 2 AM for insomnia - Start Melatonin 5 mg po QHS to promote circadian rhythm - Start [place]-3 for brain health, reduce impulsivity, and as adjunctive treatment for mood disorder, continue upon discharge given overall benefits. - Start B1 prophylaxis with 200 mg po for 5 days The patient agreed on the treatment plan, understood the risk, benefit, alternative treatment, potential consequence of no treatment, and gave informed consent. This is an acknowledgement statement that EMMY ROBERTS is a 74 year old M who requires inpatient psychiatric admission for treatment which could reasonably be expected to improve the patient's condition for Estimated period of time patient will need to remain in the hospital: [ 0] Plan for post-hospital care: [ outpatient] Assessment and Plan - Patient Problems (1) MDD (major depressive disorder), recurrent severe, without psychosis Current Visit: Yes Status: Acute (2) Substance use disorder Current Visit: Yes Status: Acute Medications and Allergies Allergies Allergy/AdvReac Type Severity Reaction Status Date / Time Penicillins Allergy Anaphylaxis Verified 02/08/20 17:39 Home Medications Medication Instructions Recorded Confirmed Last Taken Type No Known Home Medications [No 02/08/20 02/09/20 Unknown History Reported Home Medications] Active Meds: Active Medications Acetaminophen (Tylenol) 975 mg PO Q6H PRN PRN Reason: Pain, Mild (1-3) Last Admin: 02/22/20 09:57 Dose: 975 mg Documented by: Diphenhydramine HCl (Benadryl) 50 mg IM Q6H PRN PRN Reason: agitation Divalproex Sodium (Depakote Dr) 250 mg PO BID [facility] Last Admin: 02/22/20 21:51 Dose: 250 mg Documented by: Hydralazine HCl (Apresoline) 10 mg IV Q6HR PRN PRN Reason: Hypertension Melatonin (Melatonin) 5 mg PO QHS PRN PRN Reason: Sleep Last Admin: 02/19/20 21:07 Dose: 5 mg Documented by: Nicotine (Habitrol) 7 mg TD QDAY [facility] Last Admin: 02/22/20 09:23 Dose: 7 mg Documented by: Risperidone (Risperdal) 2 mg PO BID [facility] Last Admin: 02/22/20 21:52 Dose: 2 mg Documented by: Sertraline HCl (Zoloft) 50 mg PO QDAY [facility] Last Admin: 02/22/20 09:23 Dose: 50 mg Documented by: Trazodone HCl (Desyrel) 50 mg PO QHS [facility] Last Admin: 02/22/20 21:51 Dose: 50 mg Documented by: Ziprasidone (Geodon) 10 mg IM Q4H PRN PRN Reason: Agitation Results - Results Labs/Vitals: Laboratory Last Values WBC 12.0 K/mm3 (4.5-11.0) H 02/10/20 07:05 RBC 4.33 M/mm3 (3.65-5.03) 02/10/20 07:05 Hgb 14.1 gm/dl (11.8-15.2) 02/10/20 07:05 Hct 42.4 % (35.5-45.6) 02/10/20 07:05 MCV 98 fl (84-94) H 02/10/20 07:05 MCH 33 pg (28-32) H 02/10/20 07:05 MCHC 33 % (32-34) 02/10/20 07:05 RDW 13.8 % (13.2-15.2) 02/10/20 07:05 Plt Count 240 K/mm3 (140-440) 02/10/20 07:05 Lymph % (Auto) 18.1 % (13.4-35.0) 02/10/20 07:05 [place] % (Auto) 12.6 % (0.0-7.3) H 02/10/20 07:05 Eos % (Auto) 2.1 % (0.0-4.3) 02/10/20 07:05 Baso % (Auto) 1.3 % (0.0-1.8) 02/10/20 07:05 Lymph # 2.2 K/mm3 (1.2-5.4) 02/10/20 07:05 [place] # 1.5 K/mm3 (0.0-0.8) H 02/10/20 07:05 Eos # 0.2 K/mm3 (0.0-0.4) 02/10/20 07:05 Baso # 0.2 K/mm3 (0.0-0.1) H 02/10/20 07:05 Seg Neutrophils % 65.9 % (40.0-70.0) 02/10/20 07:05 Seg Neutrophils # 7.9 K/mm3 (1.8-7.7) H 02/10/20 07:05 Sodium 143 mmol/L (137-145) D 02/10/20 07:05 Potassium 3.8 mmol/L (3.6-5.0) 02/10/20 07:05 Chloride 106.1 mmol/L (98-107) 02/10/20 07:05 Carbon Dioxide 27 mmol/L (22-30) 02/10/20 07:05 Anion Gap 14 mmol/L 02/10/20 07:05 BUN 11 mg/dL (9-20) 02/10/20 07:05 Creatinine 0.7 mg/dL (0.8-1.5) L 02/10/20 07:05 Estimated GFR > 60 ml/min 02/10/20 07:05 BUN/Creatinine Ratio 16 % 02/10/20 07:05 Glucose 136 mg/dL (75-100) H 02/10/20 07:05 POC Glucose 141 (70-105) H 02/11/20 06:52 Hemoglobin A1c 5.8 % (4-6) 02/10/20 07:05 Calcium 9.1 mg/dL (8.4-10.2) 02/10/20 07:05 Total Bilirubin 0.40 mg/dL (0.1-1.2) 02/10/20 07:05 AST 53 units/L (5-40) H 02/10/20 07:05 ALT 91 units/L (7-56) H 02/10/20 07:05 Alkaline Phosphatase 121 units/L (35-129) 02/10/20 07:05 Total Protein 6.9 g/dL (6.3-8.2) 02/10/20 07:05 Albumin 3.9 g/dL (3.9-5) 02/10/20 07:05 Albumin/Globulin Ratio 1.3 % 02/10/20 07:05 Triglycerides 82 mg/dL (2-149) 02/10/20 07:05 Cholesterol 143 mg/dL (50-199) 02/10/20 07:05 LDL Cholesterol Direct 95 mg/dL (50-130) 02/10/20 07:05 HDL Cholesterol 50 mg/dL (40-59) 02/10/20 07:05 Cholesterol/HDL Ratio 2.86 % 02/10/20 07:05 TSH 0.843 mlU/mL (0.270-4.200) 02/10/20 07:05 Thyroxine (T4) 10.8 ug/dL (4.0-12.0) 02/10/20 07:05 Free T3 Index 2.6 pg/mL (2.3-4.2) 02/10/20 07:05 Coronavirus (PCR) Negative (Negative) 02/21/20 08:24 Last Vital Signs Temp 98.1 F 02/22/20 22:00 Pulse 88 02/22/20 22:00 Resp 18 02/22/20 22:00 BP 185/85 02/22/20 22:00 Pulse Ox 96 02/22/20 22:00
[2020-02-23] MEDS: risperiDONE 1 MG TAB PO SCH ×2 (09:16→21:00)
[2020-02-23] MEDS: SERTRALINE 50 MG TAB PO SCH (09:16)
[2020-02-23] MEDS: DIVALPROEX DR 250 MG TAB PO SCH ×2 (09:16→21:00)
[2020-02-23] MEDS: NICOTINE 7 MG/24 HR PATCH TD SCH (09:17)
[2020-02-23] MEDS: ACETAMINOPHEN 325 MG TAB PO PRN (09:44)
--- NOTE | 2020-02-23 11:37 | Event Note ---
Date: 02/23/20 : By nursing staff about elevated blood pressure no other acute issues reported. Per nursing staff this has been ongoing since admission. Prior history of Norvasc use patient is homeless at this time. Will restart Norvasc at 10 mg and monitor blood pressure closely.
[2020-02-23] MEDS: amLODIPine 10 MG TAB PO SCH (12:39)
[2020-02-23] MEDS: MELATONIN 5 MG TAB PO SCH (21:00)
[2020-02-23] MEDS: traZODone 50 MG TAB PO SCH (21:00)
--- NOTE | 2020-02-24 07:10 | Progress Note ---
Subjective Date of service: 02/24/20 Principal diagnosis: MDD (major depressive disorder), recurrent severe, without psychosis Subjective Comment: Nurse note: Received pt. in bed awake alert oriented alert oriented,pt denies si/hi and avh, no distress noted non reported. Will continue to monitor. Psych Progress: Patient excited about being discharged this AM, denies any SI, HI or AVH. Also requests that he wants access to phone use at his new nursing home. Patient compliance with medications. No medications side effects complaints. Reason for continuing inpatient psychiatric hospitalization: Patient to be discharged this AM. MENTAL STATUS EXAMINATION General Appearance and Behavior: Age appropriate, fair hygiene, wearing appropriate clothes, good eye contact, cooperative with questioning and polite Cooperation: Cooperative Psychomotor Behavior: unremarkable and within normal limits Mood: Good Affect and affective range: congruent with mood Thought Process: Logical Thought Content: Within Reality Speech:Normal rate, volume and tone Intellectual Functioning: Average Suicidal Ideation: Denies Homicidal Ideation: Denies Impulse Control: Unimpaired Insight and Judgment: Normal insight and judgment Memory: Normal Attention: Normal Orientation: Alert, oriented Assessment and Plan - Psychiatric problem (1) MDD (major depressive disorder), recurrent severe, without psychosis Current Visit: Yes Status: Acute (2) Substance use disorder Current Visit: Yes Status: Acute Treatment Plan: 10 mg Melatonin BEBE QHS started today for insomnia Patient will be admitted for inpatient psychiatric evaluation, medication adjustment and close monitoring The patient's behavior, mood, sleep and appetite will be closely monitored. Patient will be enrolled in individual and group therapeutic sessions and encouraged to attend. Patient will be provided with a safe and structured environment. Patient's physical health needs will be addressed by the Hospitalist. Hospitalist Consulted Labs including CBC, CMP, Lipid profile and Hemoglobin A1C ordered Social Assessment will be completed and the Payer Specialist will work with patient and family to ensure a suitable and safe disposition Medication adjustment : Continue current medications Usual Wellness Sabianism/Preservation: - Start Trazodone 50 mg po QHS & 50 mg po QHS PRN between 10 PM & 2 AM for insomnia - Start Melatonin 5 mg po QHS to promote circadian rhythm - Start [place]-3 for brain health, reduce impulsivity, and as adjunctive treatment for mood disorder, continue upon discharge given overall benefits. - Start B1 prophylaxis with 200 mg po for 5 days The patient agreed on the treatment plan, understood the risk, benefit, alternative treatment, potential consequence of no treatment, and gave informed consent. This is an acknowledgement statement that EMMY ROBERTS is a 74 year old M who requires inpatient psychiatric admission for treatment which could reasonably be expected to improve the patient's condition for Estimated period of time patient will need to remain in the hospital: [ 0] Plan for post-hospital care: [ outpatient] Assessment and Plan - Patient Problems (1) MDD (major depressive disorder), recurrent severe, without psychosis Current Visit: Yes Status: Acute (2) Substance use disorder Current Visit: Yes Status: Acute Medications and Allergies Allergies Allergy/AdvReac Type Severity Reaction Status Date / Time Penicillins Allergy Anaphylaxis Verified 02/08/20 17:39 Home Medications Medication Instructions Recorded Confirmed Last Taken Type No Known Home Medications [No 02/08/20 02/09/20 Unknown History Reported Home Medications] Active Meds: Active Medications Acetaminophen (Tylenol) 975 mg PO Q6H PRN PRN Reason: Pain, Mild (1-3) Last Admin: 02/23/20 09:44 Dose: 975 mg Documented by: Amlodipine Besylate (Amlodipine) 10 mg PO QDAY [facility] Last Admin: 02/23/20 12:39 Dose: 10 mg Documented by: Diphenhydramine HCl (Benadryl) 50 mg IM Q6H PRN PRN Reason: agitation Divalproex Sodium (Depakote Dr) 250 mg PO BID [facility] Last Admin: 02/23/20 21:00 Dose: 250 mg Documented by: Hydralazine HCl (Apresoline) 10 mg IV Q6HR PRN PRN Reason: Hypertension Melatonin (Melatonin) 10 mg PO QHS [facility] Last Admin: 02/23/20 21:00 Dose: 10 mg Documented by: Nicotine (Habitrol) 7 mg TD QDAY [facility] Last Admin: 02/23/20 09:17 Dose: 7 mg Documented by: Risperidone (Risperdal) 2 mg PO BID [facility] Last Admin: 02/23/20 21:00 Dose: 2 mg Documented by: Sertraline HCl (Zoloft) 50 mg PO QDAY [facility] Last Admin: 02/23/20 09:16 Dose: 50 mg Documented by: Trazodone HCl (Desyrel) 50 mg PO QHS [facility] Last Admin: 02/23/20 21:00 Dose: 50 mg Documented by: Ziprasidone (Geodon) 10 mg IM Q4H PRN PRN Reason: Agitation Results - Results Labs/Vitals: Laboratory Last Values WBC 12.0 K/mm3 (4.5-11.0) H 02/10/20 07:05 RBC 4.33 M/mm3 (3.65-5.03) 02/10/20 07:05 Hgb 14.1 gm/dl (11.8-15.2) 02/10/20 07:05 Hct 42.4 % (35.5-45.6) 02/10/20 07:05 MCV 98 fl (84-94) H 02/10/20 07:05 MCH 33 pg (28-32) H 02/10/20 07:05 MCHC 33 % (32-34) 02/10/20 07:05 RDW 13.8 % (13.2-15.2) 02/10/20 07:05 Plt Count 240 K/mm3 (140-440) 02/10/20 07:05 Lymph % (Auto) 18.1 % (13.4-35.0) 02/10/20 07:05 [place] % (Auto) 12.6 % (0.0-7.3) H 02/10/20 07:05 Eos % (Auto) 2.1 % (0.0-4.3) 02/10/20 07:05 Baso % (Auto) 1.3 % (0.0-1.8) 02/10/20 07:05 Lymph # 2.2 K/mm3 (1.2-5.4) 02/10/20 07:05 [place] # 1.5 K/mm3 (0.0-0.8) H 02/10/20 07:05 Eos # 0.2 K/mm3 (0.0-0.4) 02/10/20 07:05 Baso # 0.2 K/mm3 (0.0-0.1) H 02/10/20 07:05 Seg Neutrophils % 65.9 % (40.0-70.0) 02/10/20 07:05 Seg Neutrophils # 7.9 K/mm3 (1.8-7.7) H 02/10/20 07:05 Sodium 143 mmol/L (137-145) D 02/10/20 07:05 Potassium 3.8 mmol/L (3.6-5.0) 02/10/20 07:05 Chloride 106.1 mmol/L (98-107) 02/10/20 07:05 Carbon Dioxide 27 mmol/L (22-30) 02/10/20 07:05 Anion Gap 14 mmol/L 02/10/20 07:05 BUN 11 mg/dL (9-20) 02/10/20 07:05 Creatinine 0.7 mg/dL (0.8-1.5) L 02/10/20 07:05 Estimated GFR > 60 ml/min 02/10/20 07:05 BUN/Creatinine Ratio 16 % 02/10/20 07:05 Glucose 136 mg/dL (75-100) H 02/10/20 07:05 POC Glucose 141 (70-105) H 02/11/20 06:52 Hemoglobin A1c 5.8 % (4-6) 02/10/20 07:05 Calcium 9.1 mg/dL (8.4-10.2) 02/10/20 07:05 Total Bilirubin 0.40 mg/dL (0.1-1.2) 02/10/20 07:05 AST 53 units/L (5-40) H 02/10/20 07:05 ALT 91 units/L (7-56) H 02/10/20 07:05 Alkaline Phosphatase 121 units/L (35-129) 02/10/20 07:05 Total Protein 6.9 g/dL (6.3-8.2) 02/10/20 07:05 Albumin 3.9 g/dL (3.9-5) 02/10/20 07:05 Albumin/Globulin Ratio 1.3 % 02/10/20 07:05 Triglycerides 82 mg/dL (2-149) 02/10/20 07:05 Cholesterol 143 mg/dL (50-199) 02/10/20 07:05 LDL Cholesterol Direct 95 mg/dL (50-130) 02/10/20 07:05 HDL Cholesterol 50 mg/dL (40-59) 02/10/20 07:05 Cholesterol/HDL Ratio 2.86 % 02/10/20 07:05 TSH 0.843 mlU/mL (0.270-4.200) 02/10/20 07:05 Thyroxine (T4) 10.8 ug/dL (4.0-12.0) 02/10/20 07:05 Free T3 Index 2.6 pg/mL (2.3-4.2) 02/10/20 07:05 Valproic Acid 46.5 ug/mL (50-100) L 02/23/20 08:27 Coronavirus (PCR) Negative (Negative) 02/21/20 08:24 Last Vital Signs Temp 98.3 F 02/23/20 22:00 Pulse 97 H 02/23/20 19:09 Resp 18 02/23/20 22:00 BP 125/71 02/23/20 19:09 Pulse Ox 97 02/23/20 19:09
[2020-02-24] MEDS: risperiDONE 1 MG TAB PO SCH ×2 (09:19→21:44)
[2020-02-24] MEDS: amLODIPine 10 MG TAB PO SCH (09:20)
[2020-02-24] MEDS: NICOTINE 7 MG/24 HR PATCH TD SCH (09:20)
[2020-02-24] MEDS: DIVALPROEX DR 250 MG TAB PO SCH ×2 (09:20→21:43)
[2020-02-24] MEDS: SERTRALINE 50 MG TAB PO SCH (09:20)
[2020-02-24] MEDS: ACETAMINOPHEN 325 MG TAB PO PRN (09:53)
--- NOTE | 2020-02-24 12:37 | Discharge Summary ---
Providers - Providers Date of Admission: 02/09/20 20:16 Date of discharge: 02/24/20 Attending physician: STEPHEN BEAN MD 02/09/20 17:34 Consult to Physician [CONS] Routine Comment: Consulting Provider: GALE LANDON Physician Instructions: Reason For Exam: Medical Management Primary care physician: [employer] Hospitalization Reason for admission: SI/Danger to Self Condition: Good Hospital course: The patient was provided inpatient psychiatric treatment with safe and supportive environment, group/individual therapy, psychiatric medication, medication adjustment, adverse effect monitor, medical evaluation, medical treatment, social service assessment, social support meeting, placement assessme nt and psycho-education. The patients mood, cognition, behavior, motivation, compliance to treatment and appreciation on family/social support are improved and stabilized. At the time of discharge, the patient had no suicidal ideas, no homicidal ideas, no aggressive thoughts, no endangering behavior and no debilitating adverse effects. The patient agreed on the treatment plan, understood the risk, benefit, alternative treatment, potential consequence of no treatment, and gave informed consent. Disposition: DC-30 STILL A PATIENT Allergies/Adverse Reactions: Allergies Penicillins Allergy (Verified 02/08/20 17:39) Anaphylaxis Vital Signs: Last Vital Signs Temp 98.3 F 02/24/20 08:58 Pulse 92 H 02/24/20 08:58 Resp 18 02/24/20 08:58 BP 126/72 02/24/20 08:58 Pulse Ox 95 02/24/20 08:58 Last Lab: Laboratory Last Values WBC 12.0 K/mm3 (4.5-11.0) H 02/10/20 07:05 RBC 4.33 M/mm3 (3.65-5.03) 02/10/20 07:05 Hgb 14.1 gm/dl (11.8-15.2) 02/10/20 07:05 Hct 42.4 % (35.5-45.6) 02/10/20 07:05 MCV 98 fl (84-94) H 02/10/20 07:05 MCH 33 pg (28-32) H 02/10/20 07:05 MCHC 33 % (32-34) 02/10/20 07:05 RDW 13.8 % (13.2-15.2) 02/10/20 07:05 Plt Count 240 K/mm3 (140-440) 02/10/20 07:05 Lymph % (Auto) 18.1 % (13.4-35.0) 02/10/20 07:05 [place] % (Auto) 12.6 % (0.0-7.3) H 02/10/20 07:05 Eos % (Auto) 2.1 % (0.0-4.3) 02/10/20 07:05 Baso % (Auto) 1.3 % (0.0-1.8) 02/10/20 07:05 Lymph # 2.2 K/mm3 (1.2-5.4) 02/10/20 07:05 [place] # 1.5 K/mm3 (0.0-0.8) H 02/10/20 07:05 Eos # 0.2 K/mm3 (0.0-0.4) 02/10/20 07:05 Baso # 0.2 K/mm3 (0.0-0.1) H 02/10/20 07:05 Seg Neutrophils % 65.9 % (40.0-70.0) 02/10/20 07:05 Seg Neutrophils # 7.9 K/mm3 (1.8-7.7) H 02/10/20 07:05 Sodium 143 mmol/L (137-145) D 02/10/20 07:05 Potassium 3.8 mmol/L (3.6-5.0) 02/10/20 07:05 Chloride 106.1 mmol/L (98-107) 02/10/20 07:05 Carbon Dioxide 27 mmol/L (22-30) 02/10/20 07:05 Anion Gap 14 mmol/L 02/10/20 07:05 BUN 11 mg/dL (9-20) 02/10/20 07:05 Creatinine 0.7 mg/dL (0.8-1.5) L 02/10/20 07:05 Estimated GFR > 60 ml/min 02/10/20 07:05 BUN/Creatinine Ratio 16 % 02/10/20 07:05 Glucose 136 mg/dL (75-100) H 02/10/20 07:05 POC Glucose 141 (70-105) H 02/11/20 06:52 Hemoglobin A1c 5.8 % (4-6) 02/10/20 07:05 Calcium 9.1 mg/dL (8.4-10.2) 02/10/20 07:05 Total Bilirubin 0.40 mg/dL (0.1-1.2) 02/10/20 07:05 AST 53 units/L (5-40) H 02/10/20 07:05 ALT 91 units/L (7-56) H 02/10/20 07:05 Alkaline Phosphatase 121 units/L (35-129) 02/10/20 07:05 Total Protein 6.9 g/dL (6.3-8.2) 02/10/20 07:05 Albumin 3.9 g/dL (3.9-5) 02/10/20 07:05 Albumin/Globulin Ratio 1.3 % 02/10/20 07:05 Triglycerides 82 mg/dL (2-149) 02/10/20 07:05 Cholesterol 143 mg/dL (50-199) 02/10/20 07:05 LDL Cholesterol Direct 95 mg/dL (50-130) 02/10/20 07:05 HDL Cholesterol 50 mg/dL (40-59) 02/10/20 07:05 Cholesterol/HDL Ratio 2.86 % 02/10/20 07:05 TSH 0.843 mlU/mL (0.270-4.200) 02/10/20 07:05 Thyroxine (T4) 10.8 ug/dL (4.0-12.0) 02/10/20 07:05 Free T3 Index 2.6 pg/mL (2.3-4.2) 02/10/20 07:05 Valproic Acid 46.5 ug/mL (50-100) L 02/23/20 08:27 Coronavirus (PCR) Negative (Negative) 02/21/20 08:24 - Discharge Diagnoses (1) MDD (major depressive disorder), recurrent severe, without psychosis Status: Acute (2) Substance use disorder Status: Acute Core Measure Documentation - Palliative Care Palliative Care/ Comfort Measures: Not Applicable - Core Measures Any of the following diagnoses?: none Exam - Constitutional Vitals: Temp Pulse Resp BP Pulse Ox 98.3 F 92 H 18 126/72 95 02/24/20 08:58 02/24/20 08:58 02/24/20 08:58 02/24/20 08:58 02/24/20 08:58 - EENT Eyes: Present: PERRL, EOM intact ENT: hearing intact, clear oral mucosa - Neck Neck: Present: supple, normal ROM - Integumentary Integumentary: Present: clear, warm, dry Plan Activity: advance as tolerated Care Plan Goals: Goals: Maintain good and stable mental health. Plan of Treatment: The patient should be compliant with medications, not to use drugs and not to drink alcohol. The patient understands that if suicidal ideas, homicidal ideas, or any endangering thoughts arise, the patient should immediately seek for emergent assistance including but not limited to crisis hot line and emergency room. Follow up with outpatient Psychiatrist and PCP within 7 - 14 days of discharge. Follow up with: PRIMARY CARE,MD [Primary Care Provider] - 7 Days Prescriptions: traZODone [Desyrel] 50 mg PO QHS #30 tablet risperiDONE [RisperDAL] 2 mg PO BID #60 tablet Sertraline [Zoloft] 50 mg PO QDAY #30 tablet
[2020-02-24] MEDS: traZODone 50 MG TAB PO SCH (21:43)
[2020-02-24] MEDS: MELATONIN 5 MG TAB PO SCH (21:43)
--- NOTE | 2020-02-25 07:11 | Progress Note ---
Subjective Date of service: 02/25/20 Principal diagnosis: MDD (major depressive disorder), recurrent severe, without psychosis Subjective Comment: Nurse note: pt is medication compliant, good appetite,, interacting with peers, calm and cooperative, denies si/hi, denies a/v/h, bright affect, mood is appropriate, no complaints voiced, no distress noted, will continue to monitor for safety Psych Progress: Patient back in psych [place] after he was not accepted to facility from discharge due to disability accommodation. Pt denies any complaints, says his been good otherwise, no SI or HI. Reason for continuing inpatient psychiatric hospitalization: Patient to be discharged this AM. MENTAL STATUS EXAMINATION General Appearance and Behavior: Age appropriate, fair hygiene, wearing appropriate clothes, good eye contact, cooperative with questioning and polite Cooperation: Cooperative Psychomotor Behavior: unremarkable and within normal limits Mood: Good Affect and affective range: congruent with mood Thought Process: Logical Thought Content: Within Reality Speech:Normal rate, volume and tone Intellectual Functioning: Average Suicidal Ideation: Denies Homicidal Ideation: Denies Impulse Control: Unimpaired Insight and Judgment: Normal insight and judgment Memory: Normal Attention: Normal Orientation: Alert, oriented Assessment and Plan - Psychiatric problem (1) MDD (major depressive disorder), recurrent severe, without psychosis Current Visit: Yes Status: Acute (2) Substance use disorder Current Visit: Yes Status: Acute Treatment Plan: 10 mg Melatonin BEBE QHS started today for insomnia Patient will be admitted for inpatient psychiatric evaluation, medication adjustment and close monitoring The patient's behavior, mood, sleep and appetite will be closely monitored. Patient will be enrolled in individual and group therapeutic sessions and encouraged to attend. Patient will be provided with a safe and structured environment. Patient's physical health needs will be addressed by the Hospitalist. Hospitalist Consulted Labs including CBC, CMP, Lipid profile and Hemoglobin A1C ordered Social Assessment will be completed and the Operater will work with patient and family to ensure a suitable and safe disposition Medication adjustment : Continue current medications Usual Wellness Adventist/Preservation: - Start Trazodone 50 mg po QHS & 50 mg po QHS PRN between 10 PM & 2 AM for insomnia - Start Melatonin 5 mg po QHS to promote circadian rhythm - Start [place]-3 for brain health, reduce impulsivity, and as adjunctive treatment for mood disorder, continue upon discharge given overall benefits. - Start B1 prophylaxis with 200 mg po for 5 days The patient agreed on the treatment plan, understood the risk, benefit, alternative treatment, potential consequence of no treatment, and gave informed consent. This is an acknowledgement statement that EMMY ROBERTS is a 74 year old M who requires inpatient psychiatric admission for treatment which could reasonably be expected to improve the patient's condition for Estimated period of time patient will need to remain in the hospital: [ 0] Plan for post-hospital care: [ outpatient] Assessment and Plan - Patient Problems (1) MDD (major depressive disorder), recurrent severe, without psychosis Current Visit: Yes Status: Acute (2) Substance use disorder Current Visit: Yes Status: Acute Medications and Allergies Allergies Allergy/AdvReac Type Severity Reaction Status Date / Time Penicillins Allergy Anaphylaxis Verified 02/08/20 17:39 Home Medications Medication Instructions Recorded Confirmed Last Taken Type Divalproex Dr [Kari Fuller] 250 mg PO BID tablet 02/24/20 Unknown Rx Sertraline [Zoloft] 50 mg PO QDAY #30 tablet 02/24/20 Unknown Rx amLODIPine 10 mg PO DAILY #30 tab 02/24/20 Unknown Rx amLODIPine 10 mg PO QDAY tablet 02/24/20 Unknown Rx risperiDONE [RisperDAL] 2 mg PO BID #60 tablet 02/24/20 Unknown Rx traZODone [Desyrel] 50 mg PO QHS #30 tablet 02/24/20 Unknown Rx Active Meds: Active Medications Acetaminophen (Tylenol) 975 mg PO Q6H PRN PRN Reason: Pain, Mild (1-3) Last Admin: 02/24/20 09:53 Dose: 975 mg Documented by: Amlodipine Besylate (Amlodipine) 10 mg PO QDAY [facility] Last Admin: 02/24/20 09:20 Dose: 10 mg Documented by: Diphenhydramine HCl (Benadryl) 50 mg IM Q6H PRN PRN Reason: agitation Divalproex Sodium (Depakote Dr) 250 mg PO BID [facility] Last Admin: 02/24/20 21:43 Dose: 250 mg Documented by: Hydralazine HCl (Apresoline) 10 mg IV Q6HR PRN PRN Reason: Hypertension Melatonin (Melatonin) 10 mg PO QHS [facility] Last Admin: 02/24/20 21:43 Dose: 10 mg Documented by: Nicotine (Habitrol) 7 mg TD QDAY [facility] Last Admin: 02/24/20 09:20 Dose: 7 mg Documented by: Risperidone (Risperdal) 2 mg PO BID [facility] Last Admin: 02/24/20 21:44 Dose: 2 mg Documented by: Sertraline HCl (Zoloft) 50 mg PO QDAY [facility] Last Admin: 02/24/20 09:20 Dose: 50 mg Documented by: Trazodone HCl (Desyrel) 50 mg PO QHS [facility] Last Admin: 02/24/20 21:43 Dose: 50 mg Documented by: Ziprasidone (Geodon) 10 mg IM Q4H PRN PRN Reason: Agitation Results - Results Labs/Vitals: Laboratory Last Values WBC 12.0 K/mm3 (4.5-11.0) H 02/10/20 07:05 RBC 4.33 M/mm3 (3.65-5.03) 02/10/20 07:05 Hgb 14.1 gm/dl (11.8-15.2) 02/10/20 07:05 Hct 42.4 % (35.5-45.6) 02/10/20 07:05 MCV 98 fl (84-94) H 02/10/20 07:05 MCH 33 pg (28-32) H 02/10/20 07:05 MCHC 33 % (32-34) 02/10/20 07:05 RDW 13.8 % (13.2-15.2) 02/10/20 07:05 Plt Count 240 K/mm3 (140-440) 02/10/20 07:05 Lymph % (Auto) 18.1 % (13.4-35.0) 02/10/20 07:05 [place] % (Auto) 12.6 % (0.0-7.3) H 02/10/20 07:05 Eos % (Auto) 2.1 % (0.0-4.3) 02/10/20 07:05 Baso % (Auto) 1.3 % (0.0-1.8) 02/10/20 07:05 Lymph # 2.2 K/mm3 (1.2-5.4) 02/10/20 07:05 [place] # 1.5 K/mm3 (0.0-0.8) H 02/10/20 07:05 Eos # 0.2 K/mm3 (0.0-0.4) 02/10/20 07:05 Baso # 0.2 K/mm3 (0.0-0.1) H 02/10/20 07:05 Seg Neutrophils % 65.9 % (40.0-70.0) 02/10/20 07:05 Seg Neutrophils # 7.9 K/mm3 (1.8-7.7) H 02/10/20 07:05 Sodium 143 mmol/L (137-145) D 02/10/20 07:05 Potassium 3.8 mmol/L (3.6-5.0) 02/10/20 07:05 Chloride 106.1 mmol/L (98-107) 02/10/20 07:05 Carbon Dioxide 27 mmol/L (22-30) 02/10/20 07:05 Anion Gap 14 mmol/L 02/10/20 07:05 BUN 11 mg/dL (9-20) 02/10/20 07:05 Creatinine 0.7 mg/dL (0.8-1.5) L 02/10/20 07:05 Estimated GFR > 60 ml/min 02/10/20 07:05 BUN/Creatinine Ratio 16 % 02/10/20 07:05 Glucose 136 mg/dL (75-100) H 02/10/20 07:05 POC Glucose 141 (70-105) H 02/11/20 06:52 Hemoglobin A1c 5.8 % (4-6) 02/10/20 07:05 Calcium 9.1 mg/dL (8.4-10.2) 02/10/20 07:05 Total Bilirubin 0.40 mg/dL (0.1-1.2) 02/10/20 07:05 AST 53 units/L (5-40) H 02/10/20 07:05 ALT 91 units/L (7-56) H 02/10/20 07:05 Alkaline Phosphatase 121 units/L (35-129) 02/10/20 07:05 Total Protein 6.9 g/dL (6.3-8.2) 02/10/20 07:05 Albumin 3.9 g/dL (3.9-5) 02/10/20 07:05 Albumin/Globulin Ratio 1.3 % 02/10/20 07:05 Triglycerides 82 mg/dL (2-149) 02/10/20 07:05 Cholesterol 143 mg/dL (50-199) 02/10/20 07:05 LDL Cholesterol Direct 95 mg/dL (50-130) 02/10/20 07:05 HDL Cholesterol 50 mg/dL (40-59) 02/10/20 07:05 Cholesterol/HDL Ratio 2.86 % 02/10/20 07:05 TSH 0.843 mlU/mL (0.270-4.200) 02/10/20 07:05 Thyroxine (T4) 10.8 ug/dL (4.0-12.0) 02/10/20 07:05 Free T3 Index 2.6 pg/mL (2.3-4.2) 02/10/20 07:05 Valproic Acid 46.5 ug/mL (50-100) L 02/23/20 08:27 Coronavirus (PCR) Negative (Negative) 02/21/20 08:24 Last Vital Signs Temp 97.7 F 02/24/20 19:26 Pulse 91 H 02/24/20 19:26 Resp 20 02/24/20 19:26 BP 147/65 02/24/20 19:26 Pulse Ox 95 02/24/20 19:26
[2020-02-25] MEDS: SERTRALINE 50 MG TAB PO SCH (10:19)
[2020-02-25] MEDS: amLODIPine 10 MG TAB PO SCH (10:19)
[2020-02-25] MEDS: risperiDONE 1 MG TAB PO SCH (10:19)
[2020-02-25] MEDS: DIVALPROEX DR 250 MG TAB PO SCH (10:19)
[2020-02-25 10:20] VITALS: BP 118/78
[2020-02-25] MEDS: NICOTINE 7 MG/24 HR PATCH TD SCH (10:20)
== END 2020-02-25 16:10 | disposition home or self-care (01) | DRG 885 ==
LOC: 3A 11:12 → UNDOADMIN 11:12 → 5A 20:16 → UNDODISIN 02-24 14:30
PROVIDERS: ADMIT Psychiatry & Neurology Psychiatry; ATTEND Psychiatry & Neurology Psychiatry
DX: F33.9 Major depressive disorder, recurrent, unspecified (principal); R45.851 Suicidal ideations; F19.90 Other psychoactive substance use, unspecified, uncomplicated; I10 Essential (primary) hypertension; G89.29 Other chronic pain; M54.9 Dorsalgia, unspecified; N40.0 Benign prostatic hyperplasia without lower urinary tract symptoms; K21.9 Gastro-esophageal reflux disease without esophagitis; I73.9 Peripheral vascular disease, unspecified; Z88.0 Allergy status to penicillin; Z82.49 Family history of ischemic heart disease and other diseases of the circulatory system
CPT/HCPCS: 36415; 71045; 80048; 80053; 80061; 80164; 80307; 80320; 81001; 82962; 83036; 84132; 84436; 84443; 84481; 85025; G0378; G0480; U0003-CS

== ENCOUNTER 2020-02-26 14:43 | Emergency (ER) | payer MEDICARE ==
[2020-02-26 14:55] VITALS: BP 121/71
--- NOTE | 2020-02-26 15:01 | Emergency Department Report ---
Chief Complaint: Medical Clearance Stated Complaint: MH Time Seen by Provider: 02/26/20 15:00 - HPI History of Present Illness: pt states that he went to a "facility but they would not take him because he has a walker" he has no complaints at this time he has been seen by social work on multiple occasions pt will be assessed by custodial services manager floor service worker spring note: Patient was discharged by Zenia Vicente on 02/25/2020 to [facility], After follow up with [facility] patient was unable to be placed because the intermediate [facility] does not accept patient with DME equipment. Patient has stated that he has family he could contact and has the number prior to last discharge. Patient was encourage to reach out to family support once stable at intermediate. Patient has since returned to the facility and should contact family for discharge from [facility]. If patient is unable to get family patient should use resource list left on chart and bus pass to place of choice. PLAN Patient to discharge to place of choice Initialized on 02/26/20 16:41 - END OF NOTE Vitals are normal Medical screening performed and there is no threat to life or limb at this time - Exam Vital Signs: Vital Signs 02/26/20 14:54 Temperature 98.2 F Pulse Rate 95 H Respiratory 16 Rate Blood Pressure 121/71 [Right] O2 Sat by Pulse 97 Oximetry MSE screening note: Focused history and physical exam performed. ED Disposition for MSE Clinical Impression: Case management patient Disposition: Z- MED SCREENING EXAM-LEFT Is pt being admited?: No Does the pt Need Aspirin: No Condition: Stable Additional Instructions: The intermediate resources provided below are from the floor service worker spring. Please follow- up with a primary care doctor. Return to emergency room for any new or worsening symptoms. [facility] [email or web address] Main Client Number [address] [place] [address] [employer] [facility] [email or web address] Main Client Number [id number] [place] [address] [email or web address] Main Client Number [id number] [place] [address] Initialized on 02/26/20 16:47 - END OF NOTE Referrals: PRIMARY CARE, [Primary Care Provider] - 2-3 Days
--- NOTE | 2020-02-27 07:51 | Emergency Department Report ---
ED General Adult HPI - General Chief complaint: Medical Clearance Stated complaint: MH Time Seen by Provider: 02/26/20 15:00 Source: patient Mode of arrival: Wheelchair Limitations: No Limitations - History of Present Illness Initial comments: This is a pleasant 74-year-old gentleman who states that he slept in the waiting room because the homeless nursing home refused to accept him. He was admitted to the [facility] here and remained for 3 weeks. I asked him if he received physical therapy or any specific treatment to which he stated no. He states that he has been rejected from 3 different homeless centers because he uses a walker. He states he is never been placed in a long-term and that that is pending. The patient has no active complaint other than homelessness. On review of systems he does mention he has been intermittently incontinent for 6 months. His last spinal surgery was in 2002. 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 He has not been to a urologist regarding this issue. He does not report any acute weakness or numbness in the lower extremities. His incontinence issue is quite chronic. -: Gradual, month(s) Associated Symptoms: denies other symptoms - Related Data Previous Rx's Medication Instructions Recorded Last Taken Type Divalproex Dr [Depakote Dr] 250 mg PO BID tablet 02/24/20 Unknown Rx Sertraline [Zoloft] 50 mg PO QDAY #30 tablet 02/24/20 Unknown Rx amLODIPine 10 mg PO DAILY #30 tab 02/24/20 Unknown Rx amLODIPine 10 mg PO QDAY tablet 02/24/20 Unknown Rx risperiDONE [RisperDAL] 2 mg PO BID #60 tablet 02/24/20 Unknown Rx traZODone [Desyrel] 50 mg PO QHS #30 tablet 02/24/20 Unknown Rx Allergies Allergy/AdvReac Type Severity Reaction Status Date / Time Penicillins Allergy Anaphylaxis Verified 02/08/20 17:39 ED Review of Systems ROS: Stated complaint: MH Other details as noted in HPI Constitutional: denies: chills, fever Eyes: denies: eye pain, vision change ENT: denies: ear pain, throat pain Respiratory: denies: cough, shortness of breath Cardiovascular: denies: chest pain, palpitations Endocrine: no symptoms reported Gastrointestinal: denies: abdominal pain, nausea, diarrhea Genitourinary: as per HPI. denies: urgency, dysuria Musculoskeletal: denies: back pain (Nothing acute), joint swelling Skin: denies: rash, lesions Neurological: denies: headache, weakness, numbness, paresthesias Psychiatric: denies: anxiety, depression Hematological/Lymphatic: denies: easy bleeding, easy bruising ED Past Medical Hx - Past Medical History Previous Medical History?: Yes Hx GERD: Yes Hx Psychiatric Treatment: Yes (Major Depression) Additional medical history: PVD, Osteomyelitis , BPH - Surgical History Past Surgical History?: Yes Additional Surgical History: Lumbar fusion, left foot half amputation, spinal tumor removal - Social History Smoking Status: Never Smoker Substance Use Type: None - Medications Home Medications: Home Medications Medication Instructions Recorded Confirmed Last Taken Type Divalproex Dr [Depakote Dr] 250 mg PO BID tablet 02/24/20 Unknown Rx Sertraline [Zoloft] 50 mg PO QDAY #30 tablet 02/24/20 Unknown Rx amLODIPine 10 mg PO DAILY #30 tab 02/24/20 Unknown Rx amLODIPine 10 mg PO QDAY tablet 02/24/20 Unknown Rx risperiDONE [RisperDAL] 2 mg PO BID #60 tablet 02/24/20 Unknown Rx traZODone [Desyrel] 50 mg PO QHS #30 tablet 02/24/20 Unknown Rx ED Physical Exam - General Limitations: No Limitations General appearance: alert, in no apparent distress - Head Head exam: Present: atraumatic, normocephalic - Eye Eye exam: Present: normal appearance. Absent: scleral icterus - ENT ENT exam: Present: mucous membranes moist - Neck Neck exam: Present: normal inspection - Respiratory Respiratory exam: Present: normal lung sounds bilaterally. Absent: respiratory distress - Cardiovascular Cardiovascular Exam: Present: regular rate, normal rhythm. Absent: systolic murmur, diastolic murmur, rubs, gallop - GI/Abdominal GI/Abdominal exam: Present: soft, normal bowel sounds. Absent: distended, tenderness, guarding, rebound - Rectal Rectal exam: Present: deferred - Extremities Exam Extremities exam: Present: normal inspection - Back Exam Back exam: Present: normal inspection - Neurological Exam Neurological exam: Present: alert, oriented X3, CN II-XII intact. Absent: motor sensory deficit - Psychiatric Psychiatric exam: Present: normal affect, normal mood - Skin Skin exam: Present: warm, dry, intact, normal color. Absent: rash ED Course Vital Signs 02/26/20 14:54 Temperature 98.2 F Pulse Rate 95 H Respiratory 16 Rate Blood Pressure 121/71 [Right] O2 Sat by Pulse 97 Oximetry - Reevaluation(s) Reevaluation #1: Patient continues to be medically stable. He has no indications for confinement for mental health issues. I am awaiting his urinalysis results to further evaluate his complaint of chronic incontinence. Pending that he may be referred to urology for further care and evaluation. Discharge is anticipated. 02/27/20 10:50 ED Medical Decision Making - Lab Data Result diagrams: 02/27/20 07:51 02/27/20 07:51 Laboratory Results - last 24 hr 02/27/20 02/27/20 02/27/20 07:51 07:51 10:15 WBC 7.7 RBC 4.11 Hgb 13.7 Hct 40.5 MCV 99 H MCH 33 H MCHC 34 RDW 13.6 Plt Count 211 Lymph % (Auto) 20.7 [place] % (Auto) 12.6 H Eos % (Auto) 1.1 Baso % (Auto) 0.9 Lymph # 1.6 [place] # 1.0 H Eos # 0.1 Baso # 0.1 Seg Neutrophils % 64.7 Seg Neutrophils # 5.0 Sodium 141 Potassium 4.3 Chloride 102.0 Carbon Dioxide 28 Anion Gap 15 BUN 9 Creatinine 0.6 L Estimated GFR > 60 BUN/Creatinine Ratio 15 Glucose 146 H Calcium 9.0 Total Bilirubin 0.70 Direct Bilirubin 0.3 H Indirect Bilirubin 0.4 AST 72 H ALT 91 H Alkaline Phosphatase 131 H Total Protein 6.9 Albumin 3.9 Albumin/Globulin Ratio 1.3 Urine Color Yellow Urine Turbidity Clear Urine pH 7.0 Ur Specific [place] 1.011 Urine Protein <15 mg/dl Urine Glucose (UA) Neg Urine Ketones Neg Urine Blood Mod Urine Nitrite Neg Urine Bilirubin Neg Urine Urobilinogen 2.0 Ur Leukocyte Esterase Neg Urine WBC (Auto) < 1.0 Urine RBC (Auto) 1.0 Urine Mucus Few Critical care attestation.: If time is entered above; I have spent that time in minutes in the direct care of this critically ill patient, excluding procedure time. ED Disposition Clinical Impression: Case management patient Incontinence Qualifiers: Incontinence type: urinary Urinary Incontinence type: unspecified incontinence Qualified Code(s): R32 - Unspecified urinary incontinence Disposition: DC-01 TO HOME OR SELFCARE Is pt being admited?: No Does the pt Need Aspirin: No Condition: Stable Additional Instructions: The nursing home resources provided below are from the older adult social work specialist. Please follow- up with a primary care doctor. Return to emergency room for any new or worsening symptoms. [employer] [facility] [place] [email or web address] Main Client Number [id number] [place] [address] [facility] [email or web address] Main Client Number [address] [place] [address] [email or web address] [email or web address] Main Client Number [address] [place] [address] Initialized on 02/26/20 16:47 - END OF NOTE I am told the except people that use walkers: [facility] [place] [phone] Referrals: PRIMARY CAREMD [Primary Care Provider] - 2-3 Days [facility] [Provider Group] - 3-5 Days Time of Disposition: 11:04
[2020-02-27 08:08] LABS: Basophils # (Auto) 0.1 K/mm3 (0.0-0.1); Basophils % (Auto) 0.9 % (0.0-1.8); Eosinophils # (Auto) 0.1 K/mm3 (0.0-0.4); Eosinophils % (Auto) 1.1 % (0.0-4.3); Hematocrit 40.5 % (35.5-45.6); Hemoglobin 13.7 gm/dl (11.8-15.2); Lymphocytes # (Auto) 1.6 K/mm3 (1.2-5.4); Lymphocytes % (Auto) 20.7 % (13.4-35.0); Mean Corpuscular HGB Conc 34 % (32-34); Mean Corpuscular Volume 99 fl (84-94); Monocytes % (Auto) 12.6 % (0.0-7.3); Platelet Count 211 K/mm3 (140-440); Red Blood Count 4.11 M/mm3 (3.65-5.03); Red Cell Distribution Width 13.6 % (13.2-15.2)
[2020-02-27 08:31] LABS: Alanine Aminotransferase 91 units/L (7-56); Albumin 3.9 g/dL (3.9-5); BUN/Creatinine Ratio 15; Bilirubin,Direct 0.3 mg/dL (0-0.2); Blood Urea Nitrogen 9 mg/dL (9-20); Hemolysis Index 17
[2020-02-27 10:40] LABS: Bilirubin,Urine NEG (Negative); Blood,Urine MOD (Negative); Color,Urine Yellow (Yellow); Mucus,Urine FEW /HPF; Protein,Urine <15 mg/dL mg/dL (Negative); WBC,Urine < 1.0 /HPF (0.0-6.0)
== END 2020-02-27 12:32 | disposition home or self-care (01) ==
LOC: ED 14:43
DX: R32 Unspecified urinary incontinence (principal); K21.9 Gastro-esophageal reflux disease without esophagitis; Z98.890 Other specified postprocedural states; Z79.899 Other long term (current) drug therapy; Z88.0 Allergy status to penicillin
CPT/HCPCS: 36415; 80048; 80076; 81001; 85025